=== PATIENT | male | born 1995 | race Caucasian/White ===

== ENCOUNTER 2020-07-09 16:18 | Emergency (ER) | payer OTHER, SELFPAY ==
--- NOTE | 2020-07-09 | ECG_ITS ---
Test Reason : TACHYCARDIA Blood Pressure : / mmHG Vent. Rate : 069 BPM Atrial Rate : 069 BPM P-R Int : 130 ms QRS Dur : 090 ms QT Int : 390 ms P-R-T Axes : 028 032 020 degrees QTc Int : 417 ms Normal sinus rhythm Normal ECG No previous ECGs available Referred By: Tiffanie Marcano Electronically Signed By:INDIA FLYNN
[2020-07-09 16:30] VITALS: BP 125/75; PULSE 90; RESP 20; TEMP 36.7; O2SAT 98; BMI 24.5
[2020-07-09 16:39] VITALS: PULSE 88
--- NOTE | 2020-07-09 16:47 | ED.ARRPALP ---
HPI - Arrhythmia/Palpitations General Chief Complaint: Weakness <LAY Vela - Last Filed: 07/09/20 18:24> Stated Complaint: SVT 200'S, NOW 80'S <LAY Vela - Last Filed: 07/09/20 18:24> Time Seen by Provider: 07/09/20 16:47 <LAY Vela - Last Filed: 07/09/20 18:24> Source: patient and EMS <LAY Vela - Last Filed: 07/09/20 18:24> Mode of arrival: EMS <LAY Vela - Last Filed: 07/09/20 18:24> Limitations: no limitations <LAY Veal - Last Filed: 07/09/20 18:24> History of Present Illness HPI narrative: 25 y/o male with history of chronic pain on chronic opiates from [facility], anxiety and panic attacks presents with acute onset of rapid heart rate and palpitations when he was playing with his dog today. Lasted >1 minutes and was associated with dizziness. On EMS arrival patient was reportedly in SVT with HR 200's. He was instructed to perform vagal manuever and he broke into NSR, HR 80's. He now fells back to baseline. No SOB or chest pain, dizziness resolved. Denies drug use aside from prescribed opiates and only socially drinks alcohol. <LAY Vela - Last Filed: 07/09/20 18:24> MD complaint: rapid heart beat and palpitations <LAY Vela - Last Filed: 07/09/20 18:24> Onset (ago): minute(s) (45) <LAY Vela - Last Filed: 07/09/20 18:24> Duration: now resolved <LAY Vela - Last Filed: 07/09/20 18:24> Severity: severe <LAY Vela - Last Filed: 07/09/20 18:24> Context: occurred during exertion <LAY Vela Last Filed: 07/09/20 18:24> Associated symptoms: near-syncope and anxiety <LAY Vela Last Filed: 07/09/20 18:24> Treatments prior to arrival: vagal maneuvers <LAY Vela - Last Filed: 07/09/20 18:24> Related Data Home Medications: Previous Rx's Medication Instructions Recorded metoprolol tartrate 12.5 mg PO Q12H PRN #20 tab NS 07/09/20 <LAY Vela - Last Filed: 07/09/20 18:24> Allergies/Adverse Reactions: Allergies Allergy/AdvReac Type Severity Reaction Status Date / Time ibuprofen [IBUPROFEN] Allergy Unknown UPSET Unverified 06/23/20 19:11 STOMACH, headache naproxen [NAPROXEN] Allergy Unknown DIZZINESS, Unverified 06/23/20 19:11 UPSET STOMACH, headache shellfish derived Allergy Unknown ANAPHYLAXIS Unverified 06/23/20 19:11 [SHELLFISH DERIVED] gabapentin AdvReac Unknown dizziness Verified 05/17/20 00:00 shell fish Allergy Unknown Uncoded 05/29/19 00:00 Shellfish Allergy Unknown anaphylaxis Uncoded 05/17/20 00:00 <LAY Vela - Last Filed: 07/09/20 18:24> Review of Systems Review of Systems: Constitutional: No Fever, No Chills ENT/Mouth: No sore throat, No Rhinorrhea, No Swallowing Difficulty Eyes: No Eye Pain, No Swelling, No Redness Cardiovascular: No Chest Pain or SOB, No Orthopnea or Edema, positive palpitations Respiratory: No Cough, No Sputum, No Wheezing or dyspnea Gastrointestinal: No Nausea, No Vomiting, No Diarrhea, No abdominal Pain, No Hematochezia, No Melena Genitourinary: No Dysuria, No Urinary Frequency, No Hematuria Musculoskeletal: No joint pain, No Myalgias Skin: No Skin Lesions, No rash Neuro: No Weakness, No Numbness, No Dizziness, No Headache Psych: positive Anxiety/Panic, No Depression Heme/Lymph: No Bruising, No Lymphadenopathy Endocrine: No Polyuria, No Polydipsia All other 10 point ROS are negative. <LAY Vela - Last Filed: 07/09/20 18:24> [facility] Past Medical History Medical History: Medical History Anxiety <LAY Vela Last Filed: 07/09/20 18:24> Social History Social History: Social History Alcohol intake: unknown Smoking Status: Unknown if ever smoked Use of substances other than those prescribed or required for medical reasons: No Advance Directives: No Advance Directives Information Provided: Yes <LAY Vela - Last Filed: 07/09/20 18:24> Physical Exam Vital Signs and I&O and Narrative: Vital Signs and I&O: Vital Signs Temp 98.0 F 07/09/20 18:18 Pulse 75 07/09/20 18:18 Resp 18 07/09/20 18:18 BP 122/77 07/09/20 18:18 Pulse Ox 100 07/09/20 18:18 Intake & Output 07/09/20 07/09/20 07/10/20 06:59 18:59 06:59 Weight 82.024 kg Body Mass Index 24.5 Appearance: Alert. Oriented X3. No acute distress. Eyes: Pupils equal, round and reactive to light. ENT: Pharynx normal. Neck: Normal inspection. Neck supple. CVS: Normal heart rate and rhythm. Pulses normal. Respiratory: No respiratory distress. Breath sounds normal. Abdomen: Soft and nontender. +BS x4 Skin: Skin warm and dry. Normal skin color. Normal skin turgor. No rashes. Extremities: No lower extremity edema. Neuro: Oriented X 3. No motor deficit. No sensory deficit. <LAY Vela - Last Filed: 07/09/20 18:24> Vital Signs and I&O: Vital Signs Temp 98.0 F 07/09/20 18:18 Pulse 75 07/09/20 18:18 Resp 18 07/09/20 18:18 BP 122/77 07/09/20 18:18 Pulse Ox 100 07/09/20 18:18 Intake & Output 07/09/20 07/09/20 07/10/20 06:59 18:59 06:59 Weight 82.024 kg Body Mass Index 24.5 <Rios Panchal DO - Last Filed: 07/10/20 01:17> Course Course Hospital Course: continues to be in NSR, will continue to monitor. basic labs ordered. <LAY Vela - Last Filed: 07/09/20 18:24> Reevaluation(s) Reevaluation #1: EKG and labs are unremarkable. remains in sinus. appears well. will refer to cardiology and give Rx for PRN low dose lopressor. stable for d/c. <LAY Vela - Last Filed: 07/09/20 18:24> MDM - Arrhythmia/Palpitations Differential Diagnosis Differential diagnosis: Likely palpitations, anxiety, supraventricular tachycardia, ventricular tachycardia and WPW <LAY Vela - Last Filed: 07/09/20 18:24> Medical Records Attestation: I reviewed the patient's medical records. <LAY Vela - Last Filed: 07/09/20 18:24> Lab Data Attestation: I reviewed the patient's lab results. <LAY Vela - Last Filed: 07/09/20 18:24> Result diagrams: : 07/09/20 17:21 07/09/20 17:21 <LAY Vela - Last Filed: 07/09/20 18:24> Labs: Lab Results 07/09/20 07/09/20 07/09/20 Range/Units 17:21 17:21 17:21 WBC 6.7 (4.8-10.8) X10*3/uL RBC 4.65 (4.60-5.80) X10*6/uL Hgb 12.2 L (14.0-18.0) g/dl Hct 37.9 L (42-52) % MCV 81.5 (80-98) fL MCH 26.2 L (27.0-33.0) pg MCHC 32.2 (31.0-36.0) g/dl RDW 12.6 (11.0-16.0) % Plt Count 283 (160-400) X10*3/uL MPV 9.6 (9.4-12.4) fL Immature Gran % (Auto) 0.9 H (0.0-0.4) % Neut % (Auto) 53.8 (45-73) % Lymph % (Auto) 28.3 (20-40) % [place] % (Auto) 8.9 (2-11) % Eos % (Auto) 7.7 H (0-4) % Baso % (Auto) 0.4 (0-2) % Neut # (Auto) 3.6 (2.0-8.3) X10*3/uL Lymph # (Auto) 1.9 (1.2-4.9) X10*3/uL [place] # (Auto) 0.6 (0.1-1.2) X10*3/uL Eos # (Auto) 0.5 H (0.0-0.4) X10*3/uL Baso # (Auto) 0.0 (0.0-0.2) X10*3/uL Abs Immat Gran (auto) 0.06 H (0.00-0.03) X10*3/uL Absolute Nucleated RBC 0.000 (0.0-0.012) X10*3/uL Nucleated RBC % (auto) 0.0 (0.0-0.2) /100WBC Sodium 141 (135-145) mmol/L Potassium 4.4 (3.3-5.1) mmol/l Chloride 107 (96-108) mmol/L Carbon Dioxide 26 (22-29) mmol/L Anion Gap 12 (12-20) BUN 13 (9-16) mg/dL Creatinine 0.94 (0.5-1.4) mg/dL Estim Creat Clear Calc 130.7 Estimated GFR > 60 Random Glucose 100 (60-115) mg/dL Calcium 9.2 (8.4-10.2) mg/dL Magnesium (1.6-2.6) mg/dL Total Bilirubin 0.3 (0.0-1.0) mg/dL Direct Bilirubin < 0.2 (0.0-0.5) mg/dL AST 19 (5-37) U/L ALT 26 (0-40) U/L Alkaline Phosphatase 66 (39-117) U/L Total Protein 6.7 (6.5-8.0) g/dL Albumin 4.4 (3.5-5.0) g/dL Urine Opiates Screen (Not Detect) Ur Barbiturates Screen (Not Detect) Ur Phencyclidine Scrn (Not Detect) Ur Amphetamines Screen (Not Detect) U Benzodiazepines Scrn (Not Detect) Urine Cocaine Screen (Not Detect) U Marijuana (THC) Screen (Not Detect) Ethyl Alcohol < 10 mg/dL 07/09/20 07/09/20 Range/Units 17:21 17:36 WBC (4.8-10.8) X10*3/uL RBC (4.60-5.80) X10*6/uL Hgb (14.0-18.0) g/dl Hct (42-52) % MCV (80-98) fL MCH (27.0-33.0) pg MCHC (31.0-36.0) g/dl RDW (11.0-16.0) % Plt Count (160-400) X10*3/uL MPV (9.4-12.4) fL Immature Gran % (Auto) (0.0-0.4) % Neut % (Auto) (45-73) % Lymph % (Auto) (20-40) % [place] % (Auto) (2-11) % Eos % (Auto) (0-4) % Baso % (Auto) (0-2) % Neut # (Auto) (2.0-8.3) X10*3/uL Lymph # (Auto) (1.2-4.9) X10*3/uL [place] # (Auto) (0.1-1.2) X10*3/uL Eos # (Auto) (0.0-0.4) X10*3/uL Baso # (Auto) (0.0-0.2) X10*3/uL Abs Immat Gran (auto) (0.00-0.03) X10*3/uL Absolute Nucleated RBC (0.0-0.012) X10*3/uL Nucleated RBC % (auto) (0.0-0.2) /100WBC Sodium (135-145) mmol/L Potassium (3.3-5.1) mmol/l Chloride (96-108) mmol/L Carbon Dioxide (22-29) mmol/L Anion Gap (12-20) BUN (9-16) mg/dL Creatinine (0.5-1.4) mg/dL Estim Creat Clear Calc Estimated GFR Random Glucose (60-115) mg/dL Calcium (8.4-10.2) mg/dL Magnesium 2.0 (1.6-2.6) mg/dL Total Bilirubin (0.0-1.0) mg/dL Direct Bilirubin (0.0-0.5) mg/dL AST (5-37) U/L ALT (0-40) U/L Alkaline Phosphatase (39-117) U/L Total Protein (6.5-8.0) g/dL Albumin (3.5-5.0) g/dL Urine Opiates Screen Not Detected (Not Detect) Ur Barbiturates Screen Not Detected (Not Detect) Ur Phencyclidine Scrn Not Detected (Not Detect) Ur Amphetamines Screen Not Detected (Not Detect) U Benzodiazepines Scrn Not Detected (Not Detect) Urine Cocaine Screen Not Detected (Not Detect) U Marijuana (THC) Screen Not Detected (Not Detect) Ethyl Alcohol mg/dL <LAY Vela - Last Filed: 07/09/20 18:24> Lab Results 07/09/20 07/09/20 07/09/20 Range/Units 17:21 17:21 17:21 WBC 6.7 (4.8-10.8) X10*3/uL RBC 4.65 (4.60-5.80) X10*6/uL Hgb 12.2 L (14.0-18.0) g/dl Hct 37.9 L (42-52) % MCV 81.5 (80-98) fL MCH 26.2 L (27.0-33.0) pg MCHC 32.2 (31.0-36.0) g/dl RDW 12.6 (11.0-16.0) % Plt Count 283 (160-400) X10*3/uL MPV 9.6 (9.4-12.4) fL Immature Gran % (Auto) 0.9 H (0.0-0.4) % Neut % (Auto) 53.8 (45-73) % Lymph % (Auto) 28.3 (20-40) % [place] % (Auto) 8.9 (2-11) % Eos % (Auto) 7.7 H (0-4) % Baso % (Auto) 0.4 (0-2) % Neut # (Auto) 3.6 (2.0-8.3) X10*3/uL Lymph # (Auto) 1.9 (1.2-4.9) X10*3/uL [place] # (Auto) 0.6 (0.1-1.2) X10*3/uL Eos # (Auto) 0.5 H (0.0-0.4) X10*3/uL Baso # (Auto) 0.0 (0.0-0.2) X10*3/uL Abs Immat Gran (auto) 0.06 H (0.00-0.03) X10*3/uL Absolute Nucleated RBC 0.000 (0.0-0.012) X10*3/uL Nucleated RBC % (auto) 0.0 (0.0-0.2) /100WBC Sodium 141 (135-145) mmol/L Potassium 4.4 (3.3-5.1) mmol/l Chloride 107 (96-108) mmol/L Carbon Dioxide 26 (22-29) mmol/L Anion Gap 12 (12-20) BUN 13 (9-16) mg/dL Creatinine 0.94 (0.5-1.4) mg/dL Estim Creat Clear Calc 130.7 Estimated GFR > 60 Random Glucose 100 (60-115) mg/dL Calcium 9.2 (8.4-10.2) mg/dL Magnesium (1.6-2.6) mg/dL Total Bilirubin 0.3 (0.0-1.0) mg/dL Direct Bilirubin < 0.2 (0.0-0.5) mg/dL AST 19 (5-37) U/L ALT 26 (0-40) U/L Alkaline Phosphatase 66 (39-117) U/L Total Protein 6.7 (6.5-8.0) g/dL Albumin 4.4 (3.5-5.0) g/dL Urine Opiates Screen (Not Detect) Ur Barbiturates Screen (Not Detect) Ur Phencyclidine Scrn (Not Detect) Ur Amphetamines Screen (Not Detect) U Benzodiazepines Scrn (Not Detect) Urine Cocaine Screen (Not Detect) U Marijuana (THC) Screen (Not Detect) Ethyl Alcohol < 10 mg/dL 07/09/20 07/09/20 Range/Units 17:21 17:36 WBC (4.8-10.8) X10*3/uL RBC (4.60-5.80) X10*6/uL Hgb (14.0-18.0) g/dl Hct (42-52) % MCV (80-98) fL MCH (27.0-33.0) pg MCHC (31.0-36.0) g/dl RDW (11.0-16.0) % Plt Count (160-400) X10*3/uL MPV (9.4-12.4) fL Immature Gran % (Auto) (0.0-0.4) % Neut % (Auto) (45-73) % Lymph % (Auto) (20-40) % [place] % (Auto) (2-11) % Eos % (Auto) (0-4) % Baso % (Auto) (0-2) % Neut # (Auto) (2.0-8.3) X10*3/uL Lymph # (Auto) (1.2-4.9) X10*3/uL [place] # (Auto) (0.1-1.2) X10*3/uL Eos # (Auto) (0.0-0.4) X10*3/uL Baso # (Auto) (0.0-0.2) X10*3/uL Abs Immat Gran (auto) (0.00-0.03) X10*3/uL Absolute Nucleated RBC (0.0-0.012) X10*3/uL Nucleated RBC % (auto) (0.0-0.2) /100WBC Sodium (135-145) mmol/L Potassium (3.3-5.1) mmol/l Chloride (96-108) mmol/L Carbon Dioxide (22-29) mmol/L Anion Gap (12-20) BUN (9-16) mg/dL Creatinine (0.5-1.4) mg/dL Estim Creat Clear Calc Estimated GFR Random Glucose (60-115) mg/dL Calcium (8.4-10.2) mg/dL Magnesium 2.0 (1.6-2.6) mg/dL Total Bilirubin (0.0-1.0) mg/dL Direct Bilirubin (0.0-0.5) mg/dL AST (5-37) U/L ALT (0-40) U/L Alkaline Phosphatase (39-117) U/L Total Protein (6.5-8.0) g/dL Albumin (3.5-5.0) g/dL Urine Opiates Screen Not Detected (Not Detect) Ur Barbiturates Screen Not Detected (Not Detect) Ur Phencyclidine Scrn Not Detected (Not Detect) Ur Amphetamines Screen Not Detected (Not Detect) U Benzodiazepines Scrn Not Detected (Not Detect) Urine Cocaine Screen Not Detected (Not Detect) U Marijuana (THC) Screen Not Detected (Not Detect) Ethyl Alcohol mg/dL <Rios Panchal DO - Last Filed: 07/10/20 01:17> ECG Data ECG interpretation date: 07/09/20 <LAY Vela - Last Filed: 07/09/20 18:24> Interpretation: normal sinus rhythm, NR 69 bpm, normal OK interval. <LAY Vela Last Filed: 07/09/20 18:24> Discharge Plan Discharge Clinical Impression: Supraventricular tachycardia <LAY Vela Last Filed: 07/09/20 18:24> Patient Disposition: Home, Self-Care <LAY Vela - Last Filed: 07/09/20 18:24> Instructions: Supraventricular Tachycardia (ED) <LAY Vela Last Filed: 07/09/20 18:24> Additional Instructions: Avoid stimulants. Do NOT do cocaine. Limit your alcohol intake. Stay hydrated. If you experience a fast heart rate again, try the bearing down maneuver that worked for you earlier with the EMT's. If this doesn't improve your symptoms, take 1 of the medications newly prescribed. Call 911 or come to the ER if symptoms persist, or if you develop chest pain or shortness of breath. Follow up with Cardiology for further workup. <LAY Vela - Last Filed: 07/09/20 18:24> Prescriptions: New metoprolol tartrate 25 mg tablet 12.5 mg PO Q12H PRN (Reason: palpitations ) Qty: 20 RF: 0 <LAY Vela Last Filed: 07/09/20 18:24> Interventions: ED Discharge Assessment Last Done: 07/09/20 18:35 <LAY Vela Last Filed: 07/09/20 18:24> Discharge Date/Time: 07/09/20 18:35 <LAY Vela Last Filed: 07/09/20 18:24>
[2020-07-09 17:29] LABS: MANUAL DIFF FLAG NO
[2020-07-09 17:43] LABS: Basophils Percent Auto 0.4 % (0-2); Eosinophils Absolute Auto 0.5 X10*3/uL (0.0-0.4); Eosinophils Percent Auto 7.7 % (0-4); Hematocrit 37.9 % (42-52); Hemoglobin 12.2 g/dl (14.0-18.0); Imm Gran Abs Auto 0.06 X10*3/uL (0.00-0.03); Imm Gran Pct Auto 0.9 % (0.0-0.4); Lymphocytes Absolute Auto 1.9 X10*3/uL (1.2-4.9); Lymphocytes Percent Auto 28.3 % (20-40); Mean Corpuscular HGB Conc 32.2 g/dl (31.0-36.0); Mean Corpuscular Hemoglobin 26.2 pg (27.0-33.0); Mean Corpuscular Volume 81.5 fL (80-98); Mean Platelet Volume 9.6 fL (9.4-12.4); Monocytes Absolute Auto 0.6 X10*3/uL (0.1-1.2); Monocytes Percent Auto 8.9 % (2-11); Neutrophils Absolute Auto 3.6 X10*3/uL (2.0-8.3); Neutrophils Percent Auto 53.8 % (45-73); Platelet Count 283 X10*3/uL (160-400); Red Blood Count 4.65 X10*6/uL (4.60-5.80); Red Cell Distribution Width 12.6 % (11.0-16.0); White Blood Count 6.7 X10*3/uL (4.8-10.8)
[2020-07-09 17:54] LABS: Alanine Aminotransferase 26 U/L (0-40); Albumin Level 4.4 g/dL (3.5-5.0); Alkaline Phosphatase 66 U/L (39-117); Anion Gap 12 (12-20); Aspartate Amino Transferase 19 U/L (5-37); Bilirubin Direct < 0.2 mg/dL (0.0-0.5); Bilirubin Total 0.3 mg/dL (0.0-1.0); Blood Urea Nitrogen 13 mg/dL (9-16); Calcium 9.2 mg/dL (8.4-10.2); Carbon Dioxide 26 mmol/L (22-29); Chloride 107 mmol/L (96-108); Creatinine Clr Calc Pharmacy 130.7; Estimated Glomerular Filt Rate > 60; Ethanol < 10 mg/dL; Glucose Random 100 mg/dL (60-115); Potassium 4.4 mmol/l (3.3-5.1); Sodium 141 mmol/L (135-145); Total Protein 6.7 g/dL (6.5-8.0)
[2020-07-09 18:18] VITALS: BP 122/77; PULSE 75; RESP 18; TEMP 36.7; O2SAT 100
[2020-07-09 18:31] LABS: Amphetamine Screen Urine Not Detected (Not Detect); Barbiturates, Urine Not Detected (Not Detect); Benzodiazepines Screen Urine Not Detected (Not Detect); Cannabinoid Screen Urine Not Detected (Not Detect); Cocaine Screen Urine Not Detected (Not Detect); Opiate Screen Urine Not Detected (Not Detect); Phencyclidine Screen Urine Not Detected (Not Detect)
== END 2020-07-09 18:35 | disposition home or self-care (01) ==
PROVIDERS: Physician Assistant; Emergency Provider Emergency Medicine
DX: I47.1 Supraventricular tachycardia (principal); F41.9 Anxiety disorder, unspecified; Z79.891 Long term (current) use of opiate analgesic
CPT/HCPCS: 36415; 80048; 80076; 80307; 80320; 83735; 85025; 93005; 93010; 99284; 99285

== ENCOUNTER → 2020-08-08 14:46 | Outpatient (BNVA) | payer OTHER, SELFPAY | PROVIDERS: PCP Nurse Practitioner Family; Visit Provider Internal Medicine | DX: I47.1 Supraventricular tachycardia (principal); Z79.899 Other long term (current) drug therapy | CPT/HCPCS: 99202 ==

== ENCOUNTER → 2020-08-23 11:52 | Outpatient (REF) | payer OTHER, SELFPAY ==
--- NOTE | 2020-08-23 11:59 | ECG_ITS ---
Hook-up date: 2020-08-23 12:08:00 Duration: 47:59:00 Test Indications: SVT Medications: [id number] QRS complexes 5 Ventricular ectopics which represent <1 % of total QRS comp. * Supraventricular ectopics which represent % of total QRS comp. * Paced QRS complexs which represent % of total QRS comp. VENTRICULAR ECTOPY 5 Isolated 0 Bigeminal Cycles 0 Couplets 0 Runs 0 Beats in Runs * Beats LONGEST at * BPM at :: -- * Beats FASTEST at * BPM at :: -- SUPRAVENTRICULAR ECTOPY * Isolated * Couplets * Runs * Beats in Runs * Beats LONGEST at * BPM at :: -- * Beats FASTEST at * BPM at :: -- HEART RATES 56 MIN at 07:34:45 2020-08-24 89 AVG 153 MAX at 22:27:56 2020-08-23 LONGEST RR 1.2080 secs at 04:57:53 2020-08-24 S-T LEVELS Channel 1 - 128 mm at 12:08:00 2020-08-23 - 128 mm at 12:08:00 2020-08-23 Channel 2 - 128 mm at 12:08:00 2020-08-23 - 128 mm at 12:08:00 2020-08-23 Channel 3 - 128 mm at 03:12:71 -- - 128 mm at 03:12:71 Basic rhythm Normal sinus rhythm No long pause or profound bradycardia No dangerous dysrhythm periods Patient did not report any symptoms in the diary Referred By: Iron Chavez Overread By: IMELDA WILKINS MD
== END ==
LOC: HO.CARD 11:52
PROVIDERS: Visit Provider Internal Medicine
DX: I47.1 Supraventricular tachycardia (principal)
CPT/HCPCS: 93225; 93226

== ENCOUNTER → 2020-09-15 13:51 | Outpatient (BNVA) | payer OTHER, SELFPAY | PROVIDERS: PCP Physician Assistant; Referring Provider Physician Assistant; Visit Provider Internal Medicine | DX: Z76.89 Persons encountering health services in other specified circumstances (principal) ==

== ENCOUNTER 2020-10-20 20:45 | Emergency (ER) | payer OTHER, SELFPAY ==
[2020-10-20 20:48] VITALS: BP 130/70; PULSE 87; RESP 18; TEMP 36.5; O2SAT 100; BMI 23.7
--- NOTE | 2020-10-20 22:04 | PC.NURSE ---
THIS RN WITNESSED PT AMBULATE ABOUT ED WAITING ROOM TALKING ON CELL PHONE, BREATHING WITH EASE, NO DISTRESS. PT THEN AMBULATED OUT OF ED WITH EVEN STEADY GAIT AND GOT INTO A VEHICLE AND LEFT THE PROPERTY.
== END 2020-10-20 22:05 | disposition left against medical advice (07) ==
PROVIDERS: Emergency Provider Emergency Medicine; PCP Physician Assistant
DX: J45.909 Unspecified asthma, uncomplicated (principal)
CPT/HCPCS: 99281; 99282

== ENCOUNTER 2020-11-07 13:16 | Emergency (ER) | payer OTHER, SELFPAY ==
[2020-11-07 18:18] VITALS: BP 132/78; PULSE 134; RESP 16; TEMP 36.9; O2SAT 96; BMI 24.4
[2020-11-07 18:33] LABS: MANUAL DIFF FLAG NO
[2020-11-07 18:34] LABS: Basophils Percent Auto 0.3 % (0-2); Eosinophils Percent Auto 0.4 % (0-4); Hematocrit 42.3 % (42-52); Hemoglobin 13.5 g/dl (14.0-18.0); Imm Gran Abs Auto 0.02 X10*3/uL (0.00-0.03); Imm Gran Pct Auto 0.2 % (0.0-0.4); Lymphocytes Absolute Auto 1.2 X10*3/uL (1.2-4.9); Mean Corpuscular HGB Conc 31.9 g/dl (31.0-36.0); Mean Corpuscular Volume 81.3 fL (80-98); Mean Platelet Volume 9.5 fL (9.4-12.4); Monocytes Absolute Auto 0.6 X10*3/uL (0.1-1.2); Neutrophils Absolute Auto 7.8 X10*3/uL (2.0-8.3); Neutrophils Percent Auto 81.1 % (45-73); Platelet Count 306 X10*3/uL (160-400); Red Cell Distribution Width 11.9 % (11.0-16.0); White Blood Count 9.6 X10*3/uL (4.8-10.8)
--- NOTE | 2020-11-07 18:46 | XR_ITS ---
EXAMINATION: XR ABDOMEN KUB CLINICAL INDICATION: Constipation and abdominal pain COMPARISON: KUB 03/11/2020 TECHNIQUE: AP view of the abdomen. FINDINGS: A large stool burden is present throughout the colon especially in the rectosigmoid. A large stool burden and was present on 03/11/2020 as well, but this appears increased. There is no evidence of bowel obstruction. Some air is seen in nondilated small bowel. No unusual calcifications are seen. A small bone island is noted in the intertrochanteric region in the left femur. The visualized lung bases are clear. XR/XR KUB IMPRESSION: Large stool burden in the colon.
[2020-11-07 19:00] LABS: Anion Gap 16 (12-20); Blood Urea Nitrogen 13 mg/dL (9-16); Calcium 9.6 mg/dL (8.4-10.2); Carbon Dioxide 23 mmol/L (22-29); Chloride 104 mmol/L (96-108); Creatinine Clr Calc Pharmacy 141.2; Estimated Glomerular Filt Rate > 60; Glucose Random 103 mg/dL (60-115); Potassium 4.1 mmol/L (3.3-5.1); Sodium 139 mmol/L (135-145)
[2020-11-07 20:00] VITALS: RESP 20; O2SAT 100
--- NOTE | 2020-11-07 20:25 | ED.GENADULT ---
HPI - General Adult General Chief complaint: Abdominal Pain Stated complaint: constipated, pain with bowel movement Time Seen by Provider: 11/07/20 18:46 Source: patient Mode of arrival: EMS Limitations: no limitations History of Present Illness HPI narrative: 25-year-old male who presents emergency department for evaluation of constipation and near syncope. The patient states he has not moved his bowels in 3-4 weeks. He states that he was on the toilet any had an uncontrolled urge to move his bowels, he states that he was straining and could not stop straining, he then felt lightheaded and dizzy as if he was going to pass out. He states that he was concerned about his dizziness we called an ambulance was transported to the emergency department. Patient states he has had issues with constipation in the past but has never been this constipated. Patient does have chronic lower back pain and he does take oxycodone daily for his pain. He states that he is having abdominal pain. He points to his lower abdomen when asked to localize the pain. He describes the pain as a constant, pressure sensation that he feels in his rectal area as well. He feels bloated. He denied fever, chills, nausea or vomiting. He has not had any abdominal surgeries in the past. Related Data Home Medications Medication Instructions Recorded Confirmed levalbuterol tartrate 45 2 puff INHALATION Q4-6H PRN 08/02/20 10/31/20 mcg/actuation aerosol inhaler zolpidem 10 mg tablet 10 mg PO BEDTIME PRN 08/02/20 10/31/20 clonazepam 1 mg tablet 1 mg PO DAILY PRN 08/08/20 10/31/20 dextroamphetamine-amphetamine 20 20 mg PO BID PRN 08/08/20 10/31/20 mg tablet clonazepam 0.5 mg tablet 1.5 mg PO Q OTHER DAY PRN 09/07/20 10/31/20 dextroamphetamine-amphetamine ER 1 cap PO QAM 09/07/20 10/31/20 30 mg 24hr capsule,extend release acetaminophen 300 mg-codeine 30 mg 1 tab PO BID PRN 10/14/20 10/31/20 tablet Previous Rx's Medication Instructions Recorded lidocaine 4 % topical patch 1 patch TOPICAL DAILY PRN 30 Days 07/13/20 #30 ea diclofenac sodium 1 % topical gel 2 g TOPICAL TID #100 g 08/23/20 tramadol 50 mg tablet 50 mg PO BID PRN 15 Days #30 tab 09/07/20 metoprolol tartrate 25 mg tablet 12.5 mg PO Q12H PRN #30 tab NS 09/15/20 cyclobenzaprine 10 mg tablet 10 mg PO BEDTIME PRN #30 tab 10/05/20 mczutez-uwqirfsojn-XEP-caffeine 30 1 cap PO QID PRN 7 Days #28 cap 10/06/20 mg-50 mg-325 mg-40 mg capsule fluticasone 55 mcg-salmeterol 14 1 inh PO BID 30 Days #1 ea 10/31/20 mcg/actuation breath activated powder albuterol sulfate 90 mcg/actuation 2 puff INHALATION Q4-6H PRN 30 11/03/20 aerosol inhaler Days #8.5 g prednisone 10 mg tablet 10 mg PO DAILY 6 Days #12 tab 11/03/20 butalbital 50 mg-acetaminophen 300 1 cap PO BID PRN 7 Days #14 cap 11/04/20 mg-caffeine 40 mg-codeine 30 mg cap Allergies Allergy/AdvReac Type Severity Reaction Status Date / Time ibuprofen [IBUPROFEN] Allergy Unknown UPSET Verified 10/31/20 17:10 STOMACH, headache naproxen [NAPROXEN] Allergy Unknown DIZZINESS, Verified 10/31/20 17:10 UPSET STOMACH, headache shellfish derived Allergy Unknown ANAPHYLAXIS Verified 10/31/20 17:10 [SHELLFISH DERIVED] gabapentin AdvReac Unknown dizziness Verified 10/31/20 17:10 Review of Systems Review of Systems: Yes all other systems are reviewed and are negative Neurologic: Reports Abnormal speech present [facility] Past Medical History [facility] Narrative: Patient has a history of lumbar disc disease and chronic lower back pain, ADHD, asthma, depression, anxiety, migraines, SVT. He denies tobacco, alcohol and drug use. Medical History Anxiety Arthritis SVT (supraventricular tachycardia) Surgical History No pertinent past surgical history Family History Family History Father Cancer Mother No problems noted. Social History Social History Alcohol intake: never Smoking Status: Never smoker Smoked in Last 30 Days: No Use of substances other than those prescribed or required for medical reasons: Unknown Advance Directives: No Advance Directives Information Provided: Yes Physical Exam Vital Signs: Vital Signs: Last Vital Signs Temp 98.4 F 11/07/20 18:18 Pulse 134 H 11/07/20 18:18 Resp 20 11/07/20 20:00 BP 132/78 11/07/20 18:18 Pulse Ox 100 11/07/20 20:00 Body Mass Index 24.4 Const: General: cooperative and healthy appearing Orientation/consciousness: oriented to person and oriented to place Limitations: no limitations HENMT: Head: Yes normal to inspection, Yes normocephalic and Yes atraumatic Ears: external ears normal General nose exam: Normal external nose present Face and sinus: Yes normal facial exam Mouth: Normal oral and palatal mucosa present Throat: Yes posterior oropharynx normal Eyes: Periorbital: periorbital findings normal Eyelids: Yes eyelids normal Conjunctivae: conjunctivae normal Sclerae: sclerae normal Corneas: corneas normal Pupils: Equal, round and reactive pupils present Direct Ophthalmoscopy: normal light reflex Neck: Neck: Yes full ROM, Yes no lymphadenopathy, Yes no meningeal signs, Yes trachea midline and Yes supple Chest: Chest palpation & inspection: normal inspection of the chest and normal palpation of entire chest wall Resp: Effort & Inspection: normal respiratory effort and able to speak in complete sentences Auscultation: clear to auscultation bilaterally Cardio: Rate: regular rate Rhythm: regular rhythm Heart sounds: S1 normal heart sound present, S2 normal heart sound present and no murmurs GI: Inspection: Yes normal to inspection Palpation (GI): Soft to palpation, Tenderness to palpation present (GI) in the LLQ, in the RLQ and suprapubicly, no guarding, not rigid and No hepatosplenomegaly present Rectal Exam - Male: Yes visual inspection normal, Yes Abnormal stool present (Large amount of hard stool in balls) and No External hemorrhoid(s) present : General: Yes no CVA tenderness Back/Spine/Pelvis: Back: no CVA tenderness Cervical Spine: normal cervical lordosis Thoracic/Lumbar Spine: thoracic and lumbar spine normal to inspection Skin: Lesions: no lesions Rashes: no rashes Wounds: no wounds Neuro: General: oriented to person, oriented to place and no meningeal signs Cranial nerves: Yes CN's II-XII intact bilaterally and Yes Equal, round and reactive pupils present Cognition (Neuro): normal cognition Speech: Abnormal speech present Motor exam (neuro): 5/5 motor strength present throughout Extrem: General: Yes normal to inspection and Yes full ROM Psych: Appearance: well kempt Mental Status: mental status grossly normal Speech and movement: Normal speech and movement present Affect: normal affect Attitude: cooperative Thought process: Normal thought process present Thought content: Normal thought content present Course Course Course Narrative: 25-year-old male with a history of chronic back pain who takes oxycodone daily, who presents to emergency department for evaluation of constipation x4 weeks, near syncope while trying to move his bowels today. Physical examination did reveal lower abdominal tenderness rectal exam revealed multiple hard , balls of stool in his rectum which were removed by me manually. The patient was ordered to get a mineral oil enema after disimpaction. 2127: The patient was given an enema and he had a small bowel movement but then he felt that he was impacted again and requested that I disimpacted again. I was able to remove 2 more large hard stools, the patient at this point wants to go home and does not want to wait in the emergency department any longer. Patient was advised to continue taking his medication as prescribed by his doctor (lactulose and senna). He was advised to purchase a bottle of magnesium citrate and to start this tomorrow morning. Procedures Rectal Disimpaction Time out performed rectal disimpaction: No Indication: fecal impaction (Large amounts of hard stool in the patient's rectum) Procedural Sedation: No Sedation/Analgesia: none Technique: manual disimpaction with gloved finger Result: significant stool output Patient Tolerated Procedure: well Complications: none Medical Decision Making Lab Data Result diagrams: 11/07/20 18:28 11/07/20 18:28 Labs: Lab Results 11/07/20 11/07/20 Range/Units 18:28 18:28 WBC 9.6 (4.8-10.8) X10*3/uL RBC 5.20 (4.60-5.80) X10*6/uL Hgb 13.5 L (14.0-18.0) g/dl Hct 42.3 (42-52) % MCV 81.3 (80-98) fL MCH 26.0 L (27.0-33.0) pg MCHC 31.9 (31.0-36.0) g/dl RDW 11.9 (11.0-16.0) % Plt Count 306 (160-400) X10*3/uL MPV 9.5 (9.4-12.4) fL Immature Gran % (Auto) 0.2 (0.0-0.4) % Neut % (Auto) 81.1 H (45-73) % Lymph % (Auto) 12.0 L (20-40) % Ward % (Auto) 6.0 (2-11) % Eos % (Auto) 0.4 (0-4) % Baso % (Auto) 0.3 (0-2) % Lymph # (Auto) 1.2 (1.2-4.9) X10*3/uL Ward # (Auto) 0.6 (0.1-1.2) X10*3/uL Eos # (Auto) 0.0 (0.0-0.4) X10*3/uL Baso # (Auto) 0.0 (0.0-0.2) X10*3/uL Abs Immat Gran (auto) 0.02 (0.00-0.03) X10*3/uL Absolute Neuts (auto) 7.8 (2.0-8.3) X10*3/uL Absolute Nucleated RBC 0.000 (0.0-0.012) X10*3/uL Nucleated RBC % (auto) 0.0 (0.0-0.2) /100WBC Sodium 139 (135-145) mmol/L Potassium 4.1 (3.3-5.1) mmol/L Chloride 104 (96-108) mmol/L Carbon Dioxide 23 (22-29) mmol/L Anion Gap 16 (12-20) BUN 13 (9-16) mg/dL Creatinine 0.87 (0.5-1.4) mg/dL Estim Creat Clear Calc 141.2 Estimated GFR > 60 Random Glucose 103 (60-115) mg/dL Calcium 9.6 (8.4-10.2) mg/dL Discharge Plan Discharge Prescriptions: No Action lidocaine 4 % adhesive patch,medicated 1 patch topical DAILY PRN (Reason: pain) 30 Days Qty: 30 RF: 8 diclofenac sodium 1 % gel 2 g topical TID Qty: 100 RF: 1 cyclobenzaprine 10 mg tablet 10 mg PO BEDTIME PRN (Reason: for muscle spasm) Qty: 30 RF: 1 [id number]-divcckrtcw-YFT-caff [Fiorinal-Codeine #3] [id number] mg capsule 1 cap PO QID PRN (Reason: headache) 7 Days Qty: 28 RF: 1 acetaminophen-codeine 300-30 mg tablet 1 tab PO BID PRNRF: 0 albuterol sulfate [ProAir HFA] 90 mcg/actuation HFA aerosol inhaler 2 puff inhalation Q4-6H PRN (Reason: shortness of breath or wheezing) 30 Days Qty: 8.5 RF: 0 prednisone 10 mg tablet 10 mg PO DAILY 6 Days Qty: 12 RF: 0 jprlzujxbv-gkezkxibif-hnb-cod [Fioricet with Codeine] [id number] mg capsule 1 cap PO BID PRN (Reason: pain) 7 Days Qty: 14 RF: 0 levalbuterol tartrate [Xopenex HFA] 45 mcg/actuation HFA aerosol inhaler 2 puff inhalation Q4-6H PRNRF: 0 zolpidem 10 mg tablet 10 mg PO BEDTIME PRNRF: 0 clonazepam [Klonopin] 1 mg tablet 1 mg PO DAILY PRNRF: 0 dextroamphetamine-amphetamine [Adderall] 20 mg tablet 20 mg PO BID PRNRF: 0 dextroamphetamine-amphetamine 30 mg capsule,extended release 24hr 1 cap PO QAM RF: 0 clonazepam 0.5 mg tablet 1.5 mg PO Q OTHER DAY PRNRF: 0 tramadol 50 mg tablet 50 mg PO BID PRN (Reason: pain) 15 Days Qty: 30 RF: 2 fluticasone propion-salmeterol 55-14 mcg/actuation aerosol powdr breath activated 1 inh PO BID 30 Days Qty: 1 RF: 1 metoprolol tartrate 25 mg tablet 12.5 mg PO Q12H PRN (Reason: palpitations ) Qty: 30 RF: 5
[2020-11-07] MEDS: Mineral OiL enema 133 ML ENEMA PR (20:46)
[2020-11-07] MEDS: LORazepam 1 MG TABLET PO (21:06)
== END 2020-11-07 21:55 | disposition home or self-care (01) ==
PROVIDERS: Emergency Provider Emergency Medicine Emergency Medical Services
DX: K56.41 Fecal impaction (principal); G89.29 Other chronic pain; M54.5 Low back pain; Z79.891 Long term (current) use of opiate analgesic
CPT/HCPCS: 36415; 74018; 80048; 85025; 99284

== ENCOUNTER 2020-11-11 21:05 | Emergency (ER) | payer OTHER, SELFPAY ==
[2020-11-11 22:24] VITALS: BP 134/67; PULSE 93; RESP 16; TEMP 36.7; O2SAT 99; BMI 24.4
== END 2020-11-12 01:20 | disposition left against medical advice (07) ==
PROVIDERS: Emergency Provider Emergency Medicine
DX: J45.909 Unspecified asthma, uncomplicated (principal)
CPT/HCPCS: 99281; 99282

== ENCOUNTER → 2020-12-05 13:48 | Outpatient (BNVA) | payer OTHER, SELFPAY | PROVIDERS: PCP Physician Assistant; Visit Provider Anesthesiology | DX: M51.37 Other intervertebral disc degeneration, lumbosacral region (principal); G89.4 Chronic pain syndrome | CPT/HCPCS: 99202 ==

== ENCOUNTER → 2021-01-16 15:09 | Outpatient (BNVA) | payer OTHER, SELFPAY | PROVIDERS: PCP Physician Assistant; Visit Provider Anesthesiology ==

== ENCOUNTER 2021-03-07 10:10 | Outpatient (REF) | payer OTHER, SELFPAY ==
--- NOTE | ~2021-03-07 | XR_ITS ---
EXAMINATION: BILATERAL HAND CLINICAL INFORMATION: Pain in bilateral hand. COMPARISON: None TECHNIQUE: 3 views each hand. FINDINGS: Left hand: There is no visible acute fracture, dislocation or subluxation. The joint spaces are normal. The soft tissues are normal. Right hand: There is bony erosive changes. The joint spaces are normal. The soft tissues are normal. XR/XR hand LT 2V IMPRESSION: Unremarkable bilateral hand exam.
--- NOTE | ~2021-03-07 | XR_ITS ---
EXAMINATION: BILATERAL HAND CLINICAL INFORMATION: Pain in bilateral hand. COMPARISON: None TECHNIQUE: 3 views each hand. FINDINGS: Left hand: There is no visible acute fracture, dislocation or subluxation. The joint spaces are normal. The soft tissues are normal. Right hand: There is bony erosive changes. The joint spaces are normal. The soft tissues are normal. XR/XR hand RT 2V IMPRESSION: Unremarkable bilateral hand exam.
== END 2021-03-07 10:11 | disposition home or self-care (01) ==
LOC: HO.XRAY 10:10
PROVIDERS: PCP Physician Assistant; Visit Provider Physician Assistant
DX: M79.641 Pain in right hand (principal); M79.642 Pain in left hand
CPT/HCPCS: 73120

== ENCOUNTER 2021-03-28 06:28 | Outpatient (REF) | payer OTHER, SELFPAY ==
--- NOTE | ~2021-03-28 | FL_ITS ---
EXAMINATION: XR FLUOROSCOPY WITH IMAGES CLINICAL INFORMATION: Other spondylosis with myelopathy COMPARISON: None. TECHNIQUE: Fluoroscopy performed by Michelle Stevenson NP. Fluoroscopy time: 0.4 minutes DAP: 3.03 Gycm2 Images: 6 FINDINGS: There are bilateral needles placed lateral to the S1, L5 and L4 pedicles for pain management. Visualized bones are grossly unremarkable. FL/FL guidance in treatment room IMPRESSION: Fluoroscopy was provided to physician for pain management
== END 2021-03-28 06:29 | disposition home or self-care (01) ==
LOC: HO.RADIR 06:28
PROVIDERS: Visit Provider Anesthesiology
DX: M47.16 Other spondylosis with myelopathy, lumbar region (principal); M51.37 Other intervertebral disc degeneration, lumbosacral region; G89.4 Chronic pain syndrome
CPT/HCPCS: 64493; 64494; Q9967

== ENCOUNTER → 2021-04-03 15:35 | Outpatient (BNVA) | payer OTHER, SELFPAY | PROVIDERS: PCP Physician Assistant; Visit Provider Anesthesiology | DX: M51.37 Other intervertebral disc degeneration, lumbosacral region (principal); G89.4 Chronic pain syndrome; M47.817 Spondylosis without myelopathy or radiculopathy, lumbosacral region; M47.16 Other spondylosis with myelopathy, lumbar region | CPT/HCPCS: 99212 ==

== ENCOUNTER 2021-04-05 11:17 | Outpatient (REF) | payer OTHER, SELFPAY | END 2021-04-05 11:18 | disposition home or self-care (01) | LOC: HO.LAB 11:17 | PROVIDERS: PCP Physician Assistant; Visit Provider Nurse Practitioner Family | DX: Z13.89 Encounter for screening for other disorder (principal) ==

== ENCOUNTER → 2021-04-20 15:54 | Outpatient (BNVA) | payer OTHER, SELFPAY | PROVIDERS: PCP Physician Assistant; Visit Provider Anesthesiology | DX: M51.37 Other intervertebral disc degeneration, lumbosacral region (principal); M47.16 Other spondylosis with myelopathy, lumbar region; G89.4 Chronic pain syndrome | CPT/HCPCS: 99212 ==

== ENCOUNTER → 2021-05-17 16:25 | Outpatient (BNVA) | payer OTHER, SELFPAY | PROVIDERS: PCP Physician Assistant; Visit Provider Nurse Practitioner Family | DX: M51.37 Other intervertebral disc degeneration, lumbosacral region (principal); M47.16 Other spondylosis with myelopathy, lumbar region; G89.4 Chronic pain syndrome | CPT/HCPCS: 99212 ==

== ENCOUNTER → 2021-06-14 15:42 | Outpatient (BNVA) | payer OTHER, SELFPAY | PROVIDERS: PCP Physician Assistant; Visit Provider Anesthesiology | DX: Z51.81 Encounter for therapeutic drug level monitoring (principal); M51.37 Other intervertebral disc degeneration, lumbosacral region; M47.16 Other spondylosis with myelopathy, lumbar region; G89.4 Chronic pain syndrome | CPT/HCPCS: 99212 ==

== ENCOUNTER → 2021-07-12 14:08 | Outpatient (BNVA) | payer OTHER, SELFPAY | PROVIDERS: PCP Physician Assistant; Visit Provider Anesthesiology | DX: Z51.81 Encounter for therapeutic drug level monitoring (principal); M51.37 Other intervertebral disc degeneration, lumbosacral region; M47.16 Other spondylosis with myelopathy, lumbar region; G89.4 Chronic pain syndrome | CPT/HCPCS: 99212 ==

== ENCOUNTER → 2021-08-14 12:22 | Outpatient (BNVA) | payer OTHER, SELFPAY | PROVIDERS: PCP Physician Assistant; Visit Provider Anesthesiology ==

== ENCOUNTER 2021-08-29 06:38 | Outpatient (REF) | payer OTHER, SELFPAY | END 2021-08-29 06:39 | disposition home or self-care (01) | LOC: HO.RADIR 06:38 | PROVIDERS: Visit Provider Anesthesiology | DX: Z13.89 Encounter for screening for other disorder (principal) ==

== ENCOUNTER → 2021-09-13 09:08 | Outpatient (BNVA) | payer OTHER, SELFPAY | PROVIDERS: PCP Physician Assistant; Visit Provider Anesthesiology | DX: Z51.81 Encounter for therapeutic drug level monitoring (principal); M51.37 Other intervertebral disc degeneration, lumbosacral region; M47.16 Other spondylosis with myelopathy, lumbar region; G89.4 Chronic pain syndrome | CPT/HCPCS: 99212 ==

== ENCOUNTER → 2021-10-09 15:16 | Outpatient (BNVA) | payer OTHER, SELFPAY | PROVIDERS: PCP Physician Assistant; Visit Provider Anesthesiology | DX: Z51.81 Encounter for therapeutic drug level monitoring (principal); F11.20 Opioid dependence, uncomplicated; M51.37 Other intervertebral disc degeneration, lumbosacral region; M47.16 Other spondylosis with myelopathy, lumbar region; G89.4 Chronic pain syndrome | CPT/HCPCS: 99212 ==

== ENCOUNTER → 2021-11-06 10:57 | Outpatient (BNVA) | payer OTHER, SELFPAY | PROVIDERS: PCP Physician Assistant; Visit Provider Anesthesiology | DX: Z79.891 Long term (current) use of opiate analgesic (principal) | CPT/HCPCS: 99211 ==

== ENCOUNTER 2021-12-01 16:53 | Emergency (ER) | payer OTHER, SELFPAY ==
--- NOTE | ~2021-12-01 | CT_ITS ---
CT head/brain wo con CLINICAL INFORMATION: Reason for Exam headache COMPARISON: No prior CT scan available for comparison. TECHNIQUE: Department standard protocol. This CT examination was performed using dose optimization techniques as appropriate, variously including the following: *Automated exposure control *Adjustment of mA and/or kV according to patient size (this includes techniques or standardized protocols for targeted exams where dose is matched to indication/reason for exam; i.e. extremities or head) *Use of iterative reconstruction technique DLP: 378 mGy-cm FINDINGS: CEREBRAL HEMISPHERES: There is no evidence of intra-axial or extra-axial mass, hemorrhage or acute infarct. BRAIN PARENCHYMA: Normal chopra-white matter differentiation. SUBDURAL SPACE: No bleed. BASAL GANGLIA AND PINEAL GLAND: Unremarkable VENTRICLES: Symmetric and normal in size. CEREBELLUM AND BRAINSTEM: No space-occupying mass, hemorrhage or acute infarct. CEREBELLOPONTINE ANGLES: No lesion found. ORBITS: No intraorbital mass. VESSELS: Unremarkable SKULL BASE: Unremarkable INCLUDED SINUSES AT SKULL BASE: Clear SKULL AND SKIN: No fracture or bone lesion found. CT/CT head/brain wo con IMPRESSION: No CT evidence of intracranial space-occupying mass, bleed or infarct.
--- NOTE | ~2021-12-01 | XR_ITS ---
EXAMINATION: X-RAY LEFT HAND CLINICAL INFORMATION: Wrist pain. COMPARISON: Radiograph of the left hand dated from 03/07/2021. TECHNIQUE: 3 views of the left hand were obtained. FINDINGS: No acute fractures or malalignment. Carpal rows are maintained. The scapholunate interval is within normal limits. Mild nonspecific diffuse soft tissue swelling. No unexpected foreign bodies. XR/XR hand wrist LT IMPRESSION: No acute fractures or malalignment.
--- NOTE | ~2021-12-01 | XR_ITS ---
EXAMINATION: XR TIBIA AND FIBULA, LEFT CLINICAL INFORMATION: Pain to the tibia/fibula. COMPARISON: Radiograph of the left ankle dated from 05/29/2019. TECHNIQUE: AP and lateral views of the left tibia and fibula were obtained. FINDINGS: The bones and soft tissues are normal. No fracture. No osseous lesions. XR/XR tibia fibula LT 2V IMPRESSION: Normal left tibia and fibula.
--- NOTE | ~2021-12-01 | CT_ITS ---
EXAMINATION: CT CERVCAL SPINE WITHOUT CONTRAST CLINICAL INFORMATION: Neck pain COMPARISON: None TECHNIQUE: CT cervical spine without contrast. This CT examination was performed using dose optimization techniques as appropriate, variously including the following: *Automated exposure control *Adjustment of mA and/or kV according to patient size (this includes techniques or standardized protocols for targeted exams where dose is matched to indication/reason for exam; i.e. extremities or head) *Use of iterative reconstruction technique DLP: 742 mGy-cm FINDINGS: 7 cervical vertebrae identified maintaining proper height and alignments. Mild narrowing of disc space at C7-T1 suggests underlying degenerative disc disease. Included structures at skull base are normal. Atlantoaxial joint is intact. Spinal levels: C2-C3: No fracture. No central or foraminal stenosis. C3-C4: No fracture. No central or foraminal stenosis. C4-C5: No fracture. No central or foraminal stenosis. C5-C6: No fracture. No central or foraminal stenosis. C6-C7: No fracture. No central or foraminal stenosis. C7-T1: No fracture. No central or foraminal stenosis. Incidental finding was made of partially calcified soft tissue structure in the left external auditory canal 1 x 0.[address]/CT cervical spine wo con IMPRESSION: *No CT evidence of fracture. *Minimal narrowing of disc space C7-T1 suggests underlying degenerative disc disease. Incidental finding was made of 1 cm partially calcified soft tissue structure in the left external auditory canal. Please correlate with the clinical exam. Fleischner guidelines were followed.
[2021-12-01 16:57] VITALS: BP 127/64; PULSE 98; RESP 16; TEMP 36.9; O2SAT 98; BMI 23.7
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
[2021-12-01 20:16] VITALS: BP 122/60; PULSE 84; RESP 12; TEMP 36.8; O2SAT 99
== END 2021-12-01 21:08 | disposition home or self-care (01) ==
PROVIDERS: Emergency Provider Internal Medicine; PCP Physician Assistant
DX: M25.532 Pain in left wrist (principal); M79.605 Pain in left leg; M54.2 Cervicalgia; M54.50 Low back pain, unspecified; G44.309 Post-traumatic headache, unspecified, not intractable; Z79.899 Other long term (current) drug therapy
CPT/HCPCS: 70450; 72125; 73110; 73130; 73590; 99283; 99284

== ENCOUNTER → 2021-12-04 10:06 | Outpatient (BNVA) | payer OTHER, SELFPAY | PROVIDERS: PCP Physician Assistant; Visit Provider Anesthesiology | DX: G89.4 Chronic pain syndrome (principal); M51.37 Other intervertebral disc degeneration, lumbosacral region; M47.16 Other spondylosis with myelopathy, lumbar region; Z79.891 Long term (current) use of opiate analgesic | CPT/HCPCS: 99212 ==

== ENCOUNTER → 2022-01-03 13:45 | Outpatient (BNVA) | payer OTHER, SELFPAY | PROVIDERS: PCP Physician Assistant; Visit Provider Anesthesiology | DX: Z13.89 Encounter for screening for other disorder (principal) ==

== ENCOUNTER → 2022-02-02 14:07 | Outpatient (BNVA) | payer OTHER, SELFPAY | PROVIDERS: PCP Physician Assistant; Visit Provider Anesthesiology | DX: Z13.89 Encounter for screening for other disorder (principal) ==

== ENCOUNTER 2022-03-07 | Emergency (ER) | payer OTHER, SELFPAY ==
--- NOTE | ~2022-03-07 | XR_ITS ---
EXAMINATION: XR CHEST CLINICAL INFORMATION: Shortness of breath COMPARISON: 10/05/2019 TECHNIQUE: 2 views of the chest were obtained. FINDINGS: No significant abnormality is noted involving the heart, lungs, mediastinum, bony thorax or soft tissues. XR/XR chest 2V IMPRESSION: Unremarkable examination.
--- NOTE | 2022-03-07 00:08 | ECG_ITS ---
Test Reason : SOB Blood Pressure : / mmHG Vent. Rate : 093 BPM Atrial Rate : 093 BPM P-R Int : 128 ms QRS Dur : 090 ms QT Int : 340 ms P-R-T Axes : 060 042 053 degrees QTc Int : 422 ms Normal sinus rhythm Normal ECG When compared with ECG of 09-JUL-2020 17:41, Nonspecific T wave abnormality now evident in Lateral leads Referred By: Generic ED Physician Electronically Signed By:IMELDA WILKINS MD
[2022-03-07 00:25] LABS: Hematocrit 36.7 % (42.0-52.0); Hemoglobin 11.9 g/dl (14.0-18.0); Mean Corpuscular HGB Conc 32.4 g/dl (31.0-36.0); Mean Corpuscular Hemoglobin 25.8 pg (27.0-33.0); Mean Corpuscular Volume 79.6 fL (80.0-98.0); Platelet Count 237 X10*3/uL (160-400); Red Blood Count 4.61 X10*6/uL (4.60-5.80); Red Cell Distribution Width 12.3 % (11.0-16.0); White Blood Count 4.9 X10*3/uL (4.8-10.8)
[2022-03-07 00:33] VITALS: BP 127/73; PULSE 118; RESP 22; TEMP 36.6; O2SAT 99; BMI 22.4
[2022-03-07 00:44] LABS: Alanine Aminotransferase 25 U/L (0-40); Albumin Level 4.3 g/dL (3.5-5.0); Alkaline Phosphatase 60 U/L (39-117); Anion Gap 13 (12-20); Aspartate Amino Transferase 16 U/L (5-37); Bilirubin Total 0.6 mg/dL (0.0-1.0); Blood Urea Nitrogen 16 mg/dL (9-16); Calcium 9.6 mg/dL (8.4-10.2); Carbon Dioxide 24 mmol/L (22-29); Chloride 105 mmol/L (96-108); Creatinine Clr Calc Pharmacy 136.9; Estimated Glomerular Filt Rate > 60; Glucose Random 125 mg/dL (60-115); Potassium 3.6 mmol/L (3.3-5.1); Sodium 138 mmol/L (135-145); Total Protein 6.8 g/dL (6.5-8.0)
[2022-03-07 00:59] LABS: COVID-19 Test Negative (Negative); IDNOW Serial# 16C4AD1C
[2022-03-07 01:00] LABS: Influenza A Negative (Negative); Influenza B2 Negative (Negative)
== END 2022-03-07 03:45 | disposition left against medical advice (07) ==
PROVIDERS: Emergency Provider Emergency Medicine
DX: R06.00 Dyspnea, unspecified (principal); J45.909 Unspecified asthma, uncomplicated; Z51.81 Encounter for therapeutic drug level monitoring; Z79.891 Long term (current) use of opiate analgesic; Z20.822 Contact with and (suspected) exposure to COVID-19
CPT/HCPCS: 36415; 71046; 80053; 85027; 87502; 87635; 93005; 99211; 99281; 99283

== ENCOUNTER 2022-03-23 16:08 | Outpatient (REF) | payer OTHER, SELFPAY ==
--- NOTE | ~2022-03-23 | XR_ITS ---
EXAMINATION: XR HAND WRIST, LEFT CLINICAL INFORMATION: Injury. Pain COMPARISON: Radiographs left hand and wrist 12/01/2021 TECHNIQUE: The left hand and wrist are imaged together in 4 large [id number] images. A navicular view of the left wrist is also included for a total of 5 views. FINDINGS: There is no acute or healing fracture, dislocation, destructive process. The ulnar variance is neutral. Bony mineralization is normal. Pronator quadratus fat pad appears normal. There is no joint narrowing or erosive change or chondrocalcinosis. XR/XR hand wrist LT IMPRESSION: Normal study.
== END 2022-03-23 16:09 | disposition home or self-care (01) ==
LOC: HO.XRAY 16:08
PROVIDERS: PCP Physician Assistant; Visit Provider Physician Assistant
DX: S69.92XA Unspecified injury of left wrist, hand and finger(s), initial encounter (principal)
CPT/HCPCS: 73110; 73130

== ENCOUNTER → 2022-04-10 15:02 | Outpatient (BNVA) | payer OTHER, SELFPAY | PROVIDERS: PCP Physician Assistant; Visit Provider Anesthesiology | DX: Z79.891 Long term (current) use of opiate analgesic (principal) | CPT/HCPCS: 99211 ==

== ENCOUNTER → 2022-05-09 15:38 | Outpatient (BNVA) | payer OTHER, SELFPAY | PROVIDERS: PCP Physician Assistant; Visit Provider Anesthesiology | DX: M51.37 Other intervertebral disc degeneration, lumbosacral region (principal); G89.4 Chronic pain syndrome; M47.16 Other spondylosis with myelopathy, lumbar region; Z79.891 Long term (current) use of opiate analgesic | CPT/HCPCS: 99212 ==

== ENCOUNTER 2022-06-07 08:36 | Outpatient (REF) | payer OTHER, SELFPAY | END 2022-06-07 08:37 | disposition home or self-care (01) | LOC: HO.LAB 08:36 | PROVIDERS: PCP Physician Assistant; Visit Provider Anesthesiology | DX: M51.37 Other intervertebral disc degeneration, lumbosacral region (principal); G89.4 Chronic pain syndrome; M47.16 Other spondylosis with myelopathy, lumbar region | CPT/HCPCS: 99212 ==

== ENCOUNTER → 2022-07-09 15:17 | Outpatient (BNVA) | payer OTHER, SELFPAY | PROVIDERS: PCP Physician Assistant; Visit Provider Anesthesiology | DX: Z51.81 Encounter for therapeutic drug level monitoring (principal); F11.20 Opioid dependence, uncomplicated; M51.37 Other intervertebral disc degeneration, lumbosacral region; M47.16 Other spondylosis with myelopathy, lumbar region; G89.4 Chronic pain syndrome | CPT/HCPCS: 99212 ==

== ENCOUNTER → 2022-08-08 16:02 | Outpatient (BNVA) | payer OTHER, SELFPAY | PROVIDERS: PCP Physician Assistant; Visit Provider Anesthesiology | DX: M51.37 Other intervertebral disc degeneration, lumbosacral region (principal); G89.4 Chronic pain syndrome; M47.16 Other spondylosis with myelopathy, lumbar region; Z51.81 Encounter for therapeutic drug level monitoring | CPT/HCPCS: 99212 ==

== ENCOUNTER → 2022-10-03 14:56 | Outpatient (BNVA) | payer OTHER, SELFPAY | PROVIDERS: PCP Physician Assistant; Visit Provider Anesthesiology | DX: Z13.89 Encounter for screening for other disorder (principal) ==

== ENCOUNTER → 2022-11-05 14:49 | Outpatient (BNVA) | payer OTHER, SELFPAY | PROVIDERS: PCP Physician Assistant; Visit Provider Anesthesiology | DX: Z13.89 Encounter for screening for other disorder (principal) ==

== ENCOUNTER → 2022-12-05 15:16 | Outpatient (BNVA) | payer OTHER, SELFPAY | PROVIDERS: PCP Physician Assistant; Visit Provider Anesthesiology | DX: M47.817 Spondylosis without myelopathy or radiculopathy, lumbosacral region (principal); M51.37 Other intervertebral disc degeneration, lumbosacral region; M54.2 Cervicalgia; G89.4 Chronic pain syndrome; F11.20 Opioid dependence, uncomplicated; Z51.81 Encounter for therapeutic drug level monitoring; Z79.899 Other long term (current) drug therapy | CPT/HCPCS: 99212 ==

== ENCOUNTER → 2023-01-02 15:49 | Outpatient (BNVA) | payer OTHER, SELFPAY | PROVIDERS: PCP Physician Assistant; Visit Provider Anesthesiology | DX: Z51.81 Encounter for therapeutic drug level monitoring (principal); F11.20 Opioid dependence, uncomplicated | CPT/HCPCS: 99211 ==

== ENCOUNTER → 2023-02-04 16:23 | Outpatient (BNVA) | payer OTHER, SELFPAY | PROVIDERS: PCP Physician Assistant; Visit Provider Anesthesiology | DX: M47.16 Other spondylosis with myelopathy, lumbar region (principal); M51.37 Other intervertebral disc degeneration, lumbosacral region; M54.2 Cervicalgia; G89.4 Chronic pain syndrome; Z79.891 Long term (current) use of opiate analgesic | CPT/HCPCS: 99212 ==

== ENCOUNTER → 2023-03-06 16:21 | Outpatient (BNVA) | payer OTHER, SELFPAY | PROVIDERS: PCP Physician Assistant; Visit Provider Anesthesiology | DX: Z79.891 Long term (current) use of opiate analgesic (principal) | CPT/HCPCS: 99211 ==

== ENCOUNTER → 2023-04-03 15:47 | Outpatient (BNVA) | payer OTHER, SELFPAY | PROVIDERS: PCP Physician Assistant; Visit Provider Registered Nurse Emergency | DX: G89.4 Chronic pain syndrome (principal); M51.37 Other intervertebral disc degeneration, lumbosacral region; M47.16 Other spondylosis with myelopathy, lumbar region; Z79.891 Long term (current) use of opiate analgesic | CPT/HCPCS: 99212 ==

== ENCOUNTER → 2023-05-03 15:45 | Outpatient (BNVA) | payer OTHER, SELFPAY | PROVIDERS: PCP Physician Assistant; Visit Provider Registered Nurse Emergency | DX: M51.37 Other intervertebral disc degeneration, lumbosacral region (principal); M47.16 Other spondylosis with myelopathy, lumbar region; G89.4 Chronic pain syndrome; Z79.891 Long term (current) use of opiate analgesic | CPT/HCPCS: 99212 ==

== ENCOUNTER 2023-05-03 15:46 | Outpatient (AMB) | payer OTHER, SELFPAY ==
[2023-05-03 15:50] VITALS: BP 134/74; PULSE 86; RESP 16; O2SAT 98; BMI 24.4
--- NOTE | 2023-05-03 15:50 | MHC.OFFVIS ---
Intake Vital Signs 05/03/23 15:50 Height 5 ft 8 in Weight 160 lb 8 oz BMI 24.4 BP 134/74 Blood Pressure Location Lt brachial Position Sitting Respiration 16 Pulse 86 Pulse Source Pulse Oximeter Pulse Oximetry (%) 98 Oxygen Delivery Method Room Air Intake Visit Reasons: Pill count Allergies shellfish derived [SHELLFISH DERIVED] Allergy (Unknown, Verified 05/03/23 15:49) ANAPHYLAXIS gabapentin Adverse Reaction (Unknown, Verified 05/03/23 15:49) dizziness ibuprofen [IBUPROFEN] Adverse Reaction (Unknown, Verified 05/03/23 15:49) UPSET STOMACH, headache naproxen [NAPROXEN] Adverse Reaction (Unknown, Verified 05/03/23 15:49) DIZZINESS, UPSET STOMACH, headache HPI HPI Comments History of Present Illness Details Jean Claude is a very pleasant 28 year old male who presents to the office today for follow up chronic pain and chronic opioid therapy management. Patient is prescribed oxycodone acetaminophen 5-325mg take 1 tablet three times daily as needed. Patient arrived today with the expectation of having 9 pills, he presented 8 pills which were counted in the presence of two staff members and returned to the patient in the original prescription bottle. This demonstrates responsible attitude toward patient's opioid medications. Pain is reported today as 7/10 and last dose of pain medication was taken at 2:45pm today. Pain is adequately managed on current opioid regimen. Patient denies any recent changes or exacerbations of chronic back pain and states he is able to engage in activities of daily living with minimal interruption due to chronic pain. Patient reports his opioid medications allow him to be active and participate in recreational activities. Patient denies side effects including somnolence, dizziness, weakness or constipation. Previously: ?I performed bilateral medial branch block L3-L4 does ramus L5 diagnostic without any steroids to find out whether or not this procedure will help his pain. on 03/28/2021.? He reported around 50% pain relief after the injections.? Unfortunately this is not good enough for me to perform any definite treatment such as radiofrequency ablation.? ? At the same time the MRI is quite non impressive for this gentleman.? The only level he has is actually L5-S1 level. ? He was under care of [facility] for long period of time with this complaint.? He had an MRI of the lumbar spine which is dictated as below.? He had an injection interlaminar epidural steroid injection which caused him severe headache and loss of consciousness as well as paralysis of bilateral lower extremities.? He reports that he is involved in malpractice lawsuit against the practitioner who performed this injection. PHQ score is very much alleviate and 10 equal to 19. I his opioid risk assessment score is equal to 7. total score is 26 [facility] Medical History Anxiety Arthritis Cervicalgia Chronic pain syndrome Degeneration of lumbosacral intervertebral disc Spondylosis of lumbosacral region SVT (supraventricular tachycardia) Surgical History History of lung surgery Family History Father Cancer Mother Mental health disorder Social History Housing: Apartment Alcohol intake: never Patient Tobacco Use Status: Never used Tobacco e-Cigarette/Vaping Use: Never Used Second Hand Smoke Exposure: No service: No Current occupational status: disabled Cognitive needs: Yes (cane) Hearing needs: No Vision needs: No Review of Systems Const All systems reviewed & are unremarkable except as noted in HPI and below Physical Exam Vital Signs: Last Vital Signs Pulse 86 05/03/23 15:50 Resp 16 05/03/23 15:50 BP 134/74 05/03/23 15:50 Pulse Ox 98 05/03/23 15:50 Oxygen Delivery Method Room Air 05/03/23 15:50 BMI result Body Mass Index 24.4 Const Other: General: awake, alert, oriented. Answers questions appropriately. Fully engaged in examination. Skin: warm, dry, intact without visible rashes or lesions. HEENT: Normocephalic. Conjuntivae clear without exudate. Sclera non-icteric. Hearing intact. Cardiac: External chest normal in appearance. Respiratory: No signs of trauma. No signs of respiratory distress. No cough, audible wheezing or stridor. Abdomen: without gross distension. MS: No obvious swelling or deformities. Able to transition from sit to stand unassisted. Ambulates with bilaterally normal heel strike and toe off Neurological: Oriented to person, place, time and situation. Thought process intact. No gait abnormalities appreciated. Psychiatric: Appropriate mood and affect. Good judgment and insight. Assessment & Plan Assessment & Plan (1) Degeneration of lumbosacral intervertebral disc: Code(s): M51.37 - Other intervertebral disc degeneration, lumbosacral region (2) Chronic pain syndrome: Code(s): G89.4 - Chronic pain syndrome (3) Spondylosis of lumbosacral region: Code(s): M47.817 - Spondylosis without myelopathy or radiculopathy, lumbosacral region Qualifiers: Spinal osteoarthritis complication: with myelopathy Qualified Code(s): M47.16 - Other spondylosis with myelopathy, lumbar region Plan [place] was reviewed and without concerns. No obvious signs of diversion, abuse or misuse of the opioid medications. Will send in prescription for oxycodone/acetaminophen 5-325 mg TID PRN with an advanced date of 05/07/2023. Patient to follow-up in the office in 1 month, sooner if needed. All questions and concerns have been answered and patient agrees with the plan. Medications: Refilled oxycodone-acetaminophen 5-325 mg 1 tab PO TID PRN 90 tabs 0RF pain, severe 30 days Coding Level of Care Code Est Pt Level 3 (70193) Diagnoses Degeneration of lumbosacral intervertebral disc M51.37 Chronic pain syndrome G89.4 Spondylosis of lumbosacral region M47.16 Spinal osteoarthritis complication: with myelopathy
== END 2023-05-03 15:54 | disposition home or self-care (01) ==
PROVIDERS: PCP Physician Assistant; Visit Provider Registered Nurse Emergency
DX: M51.37 Other intervertebral disc degeneration, lumbosacral region (principal); G89.4 Chronic pain syndrome; M47.16 Other spondylosis with myelopathy, lumbar region
CPT/HCPCS: 99213

== ENCOUNTER 2023-06-03 16:21 | Outpatient (AMB) | payer OTHER, SELFPAY ==
--- NOTE | 2023-06-03 16:25 | A.OFFVIS_ITS ---
Intake Vital Signs 06/03/23 16:26 Height 5 ft 8 in Weight 160 lb BMI 24.3 BP 134/74 Blood Pressure Location Rt brachial Position Sitting Pulse 77 Pulse Source Pulse Oximeter Pulse Oximetry (%) 98 Oxygen Delivery Method Room Air Intake Visit Reasons: PILL COUNT Intake Note: Jean Claude comes in today for a pill count to oxycodone-acetaminophen, patient should have 6 tablets and presents with 6 tablets which he last took today 06/03/23 at 3:30pm. Pain today 710. 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 Accompanied by: Self / Same As Patient Allergies shellfish derived [SHELLFISH DERIVED] Allergy (Unknown, Verified 06/03/23 16:27) ANAPHYLAXIS gabapentin Adverse Reaction (Unknown, Verified 06/03/23 16:27) dizziness ibuprofen [IBUPROFEN] Adverse Reaction (Unknown, Verified 06/03/23 16:27) UPSET STOMACH, headache naproxen [NAPROXEN] Adverse Reaction (Unknown, Verified 06/03/23 16:27) DIZZINESS, UPSET STOMACH, headache HPI HPI Comments History of Present Illness Details Jean Claude is a very pleasant 28 year old male who presents to the office today for follow up chronic pain and chronic opioid therapy management. He is on oxycodone acetaminophen 5-325mg take 1 tablet three times daily as needed. His supposed to have 6 pills in his possession. He came with 6 pills in his possession. This demonstrates responsible attitude toward patient's opioid medications. Pain is reported today as 4/10 and last dose of pain medication was taken at 30 minutes ago.. Pain is adequately managed on current opioid regimen. Patient denies any recent changes or exacerbations of chronic back pain and states he is able to engage in activities of daily living with minimal interruption due to chronic pain. Patient reports his opioid medications allow him to be active and participate in recreational activities. Patient denies side effects including somnolence, dizziness, weakness or constipation. Previously: ?I performed bilateral medial branch block L3-L4 does ramus L5 diagnostic without any steroids to find out whether or not this procedure will help his pain. on 03/28/2021.? He reported around 50% pain relief after the injections.? Unfortunately this is not good enough for me to perform any definite treatment such as radiofrequency ablation.? ? At the same time the MRI is quite non impressive for this gentleman.? The only level he has is actually L5-S1 level. ? He was under care of [facility] for long period of time with this complaint.? He had an MRI of the lumbar spine which is dictated as below.? He had an injection interlaminar epidural steroid injection which caused him severe headache and loss of consciousness as well as paralysis of bilateral lower extremities.? He reports that he is involved in malpractice lawsuit against the practitioner who performed this injection. PHQ score is very much alleviate and 10 equal to 19. I his opioid risk assessment score is equal to 7. total score is 26 PFSH Medical History Anxiety Arthritis Cervicalgia Chronic pain syndrome Degeneration of lumbosacral intervertebral disc Spondylosis of lumbosacral region SVT (supraventricular tachycardia) Surgical History History of lung surgery Family History Father Cancer Mother Mental health disorder Social History Housing: Apartment Alcohol intake: never Patient Tobacco Use Status: Never used Tobacco e-Cigarette/Vaping Use: Never Used Second Hand Smoke Exposure: No service: No Current occupational status: disabled Cognitive needs: Yes (cane) Hearing needs: No Vision needs: No Review of Systems Neuro Denies Abnormal speech present Physical Exam Vital Signs: Last Vital Signs Pulse 77 06/03/23 16:26 BP 134/74 06/03/23 16:26 Pulse Ox 98 06/03/23 16:26 Oxygen Delivery Method Room Air 06/03/23 16:26 BMI result Body Mass Index 24.3 Const General: cooperative, healthy appearing, comfortable, no acute distress and alert Nutritional Appearance: average body habitus Orientation/consciousness: patient oriented x3 Limitations: no limitations HEENT Head: Yes normocephalic and Yes atraumatic Ears: hearing grossly normal bilaterally Eyes General: appearance normal, both eyes and all related structures Eyelids: Yes eyelids normal Pupils: Equal, round and reactive pupils present EOM: EOMs intact bilaterally Neck Neck: Yes normal visual inspection, Yes full ROM and Yes no JVD Resp Effort & Inspection: normal respiratory effort, able to speak in complete sentences and no audible wheezes Cardio Jugular venous distension: no JVD Neuro General: patient oriented x3 Cranial nerves: Yes Equal, round and reactive pupils present Speech: No Abnormal speech present Results Reviewed Results Reviewed: 7 cervical vertebrae identified maintaining proper height and alignments. Mild narrowing of disc space at C7-T1 suggests underlying degenerative disc disease. Included structures at skull base are normal. Atlantoaxial joint is intact. ? Spinal levels: C2-C3: No fracture. No central or foraminal stenosis.? C3-C4: No fracture. No central or foraminal stenosis.? C4-C5: No fracture. No central or foraminal stenosis.? C5-C6: No fracture. No central or foraminal stenosis.? C6-C7: No fracture. No central or foraminal stenosis.? C7-T1: No fracture. No central or foraminal stenosis. Incidental finding was made of partially calcified soft tissue structure in the left external auditory canal 1 x 0.4 cm. Nonspecific. Assessment & Plan Assessment & Plan (1) Degeneration of lumbosacral intervertebral disc: Code(s): M51.37 - Other intervertebral disc degeneration, lumbosacral region (2) Chronic pain syndrome: Code(s): G89.4 - Chronic pain syndrome (3) Spondylosis of lumbosacral region: Code(s): M47.817 - Spondylosis without myelopathy or radiculopathy, lumbosacral region Qualifiers: Spinal osteoarthritis complication: with myelopathy Qualified Code(s): M47.16 - Other spondylosis with myelopathy, lumbar region Plan Masspat was reviewed and without concerns. No obvious signs of diversion, abuse or misuse of the opioid medications. Will send in prescription for oxycodone/acetaminophen 5-325 mg TID PRN with an advanced date of 06/06/2023 Patient to follow-up in the office in 1 month, sooner if needed. All questions and concerns have been answered and patient agrees with the plan. Medications: Refilled oxycodone-acetaminophen 5-325 mg 1 tab PO TID 30 days PRN 90 tabs 0RF pain, severe Coding Level of Care Code Est Pt Level 3 (37487) Diagnoses Degeneration of lumbosacral intervertebral disc M51.37 Chronic pain syndrome G89.4 Spondylosis of lumbosacral region M47.16 Spinal osteoarthritis complication: with myelopathy
[2023-06-03 16:26] VITALS: BP 134/74; PULSE 77; O2SAT 98; BMI 24.3
== END 2023-06-03 16:27 | disposition home or self-care (01) ==
PROVIDERS: PCP Physician Assistant; Visit Provider Anesthesiology
DX: M51.37 Other intervertebral disc degeneration, lumbosacral region (principal); G89.4 Chronic pain syndrome; M47.16 Other spondylosis with myelopathy, lumbar region
CPT/HCPCS: 99213

== ENCOUNTER → 2023-06-03 16:21 | Outpatient (BNVA) | payer OTHER, SELFPAY | PROVIDERS: PCP Physician Assistant; Visit Provider Anesthesiology | DX: G89.4 Chronic pain syndrome (principal); M51.37 Other intervertebral disc degeneration, lumbosacral region; M47.817 Spondylosis without myelopathy or radiculopathy, lumbosacral region; Z79.891 Long term (current) use of opiate analgesic | CPT/HCPCS: 99212 ==

== ENCOUNTER → 2023-06-27 10:49 | Outpatient (BNVA) | payer OTHER, SELFPAY | PROVIDERS: PCP Physician Assistant; Visit Provider Anesthesiology | DX: Z79.891 Long term (current) use of opiate analgesic (principal) | CPT/HCPCS: 99211 ==

== ENCOUNTER 2023-07-18 15:44 | Outpatient (AMB) | payer OTHER, SELFPAY ==
[2023-07-18 15:55] VITALS: BP 118/60; PULSE 92; RESP 16; O2SAT 98; BMI 25.2
--- NOTE | 2023-07-18 15:55 | MHC.PC.OV ---
Vital Signs 07/18/23 15:55 Height 5 ft 8 in Weight 166 lb BMI 25.2 BP 118/60 Blood Pressure Location Lt brachial Position Sitting Respiration 16 Pulse 92 Pulse Source Pulse Oximeter Pulse Oximetry (%) 98 Oxygen Delivery Method Room Air Intake Visit Reasons: Med review Intake Note: Patient is here today for a physical/ADHD medication. 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 Accompanied by: Self / Same As Patient Allergies shellfish derived [SHELLFISH DERIVED] Allergy (Unknown, Verified 07/18/23 16:22) ANAPHYLAXIS gabapentin Adverse Reaction (Unknown, Verified 07/18/23 16:22) dizziness ibuprofen [IBUPROFEN] Adverse Reaction (Unknown, Verified 07/18/23 16:22) UPSET STOMACH, headache naproxen [NAPROXEN] Adverse Reaction (Unknown, Verified 07/18/23 16:22) DIZZINESS, UPSET STOMACH, headache Medication List - Last Reconciled 07/18/23 by Max Osuna PA-C albuterol sulfate 90 mcg/actuation (Ventolin HFA) 2 puffs inhalation Q4-6H PRN [id number] 50-325-40 mg 1 tab PO Q6H PRN dextroamphetamine-amphetamine 30 mg ER 1 cap PO QAM 30 days diclofenac potassium 50 mg PO BID 7 days diclofenac sodium 1% 2 grams topical TID fluticasone propion-salmeterol 55-14 mcg/actuation 1 inh inhalation BID 30 days oxycodone-acetaminophen 5-325 mg 1 tab PO TID PRN 30 days Tobacco use date assessed: 07/18/23 Dental Screening Dental Screen Date: 07/18/23 Did you have a dental visit in the last 12 months?: No Did you have a dental problem in the last 6 months where you did not have access to dental care?: No Was dental information given to patient?: Patient has dentist HPI Med review HPI Details Patient is a 28-year-old male here today for an annual physical. Patient has a past medical history significant for lumbar disc disease, ADHD, asthma, migraines. .. Lumbar disc disease: Continues to follow with pain management here in [place]. He does seldomly get injections in his lower lumbar spine. Continues on narcotic pain medication as part of his pain management. .. ADHD : Was seeing a Window Clerk and was being prescribed adderal though has lost his follow-up with Psychiatry. Due to not having a vehicle he was not able to make it to appointments here the PCP office or at new psychiatry office. Now has a vehicle and is willing to be established again with a psychiatrist to continue monitoring and evaluating his ADHD and anxiety. .. Asthma: Has been fairly well controlled though does report having some exacerbations in his asthma during changes of seasons and in ginny environments. Has not had any access to his maintenance inhaler and a while due to [place] sure it is coverage. Does use an albuterol inhaler on a p.r.n. basis VAccine:UTD with COVID vaccine , Considering flu vaccine [facility] Medical History Cervicalgia Spondylosis of lumbosacral region Chronic pain syndrome Degeneration of lumbosacral intervertebral disc Arthritis SVT (supraventricular tachycardia) Anxiety Surgical History History of lung surgery Family History Father Cancer Mother Mental health disorder Social History Housing: Apartment Alcohol intake: never Patient Tobacco Use Status: Never used Tobacco e-Cigarette/Vaping Use: Never Used Second Hand Smoke Exposure: No service: No Current occupational status: disabled Cognitive needs: Yes (cane) Hearing needs: No Vision needs: No Questionnaire PHQ-9 Over the last 2 weeks, how often have you been bothered by any of the following problems? 1. Little interest or pleasure in doing things: not at all 2. Feeling down, depressed, or hopeless: not at all 3. Trouble falling or staying asleep, or sleeping too much: not at all 4. Feeling tired or having little energy: not at all 5. Poor appetite or overeating: not at all 6. Feeling bad about yourself - or that you are a failure or have let yourself or your family down: not at all 7. Trouble concentrating on things, such as reading the newspaper or watching television: not at all 8. Moving or speaking so slowly that other people could have noticed. Or the opposite - being so fidgety or restless that you have been moving around a lot more than usual: not at all 9. Thoughts that you would be better off or of hurting yourself in some way: not at all Total score: 0 Depression Screening Interpretation: Negative Depression Screening Done: Yes 87612 - PHQ-9 Billing: Yes Source: Developed by Drs. Jacques Cesar, Aubree Carrasquillo, Cricket Napoles and colleagues, with an educational yamilex from [employer]. Thrive Questionnaire Date Thrive assessed: 07/18/23 I am a: Patient What is your living situation today?: I have a steady place to live Within the past 12 months, did the food you bought not last and you didn't have the money to get more?: Never true Within the past 12 months, did you worry whether your food would run out before you got money to buy more?: Never true Do you have trouble paying for medicines?: No Do you have trouble getting transportation to medical appointments?: No Do you have trouble paying your heating and electricity bill?: No Do you have trouble taking care of your child, family member or friend?: No Do you have trouble with day-to-day activities such as bathing, preparing meals, shopping, managing finances, etc.?: No Are you currently unemployed and looking for a job?: No Are you interested in more education?: No Please select the resources that you would like help with: None Currently or been in a relationship where the following occur: no concerns reported AUDIT C Alcohol Use Questionnaire (AUDIT-C) 1. How often do you have a drink containing alcohol?: Never 3. How often do you have six or more drinks on one occasion?: Never Total Score: 0 ANN-7 AMB Questionnaire ANN-7 Date ANN - 7 assessed: 07/18/23 Feeling nervous, anxious, or on edge: 3 = Nearly every day Not being able to stop or control worryin = More than half the days Worrying too much about different things: 2 = More than half the days Trouble relaxin = More than half the days Being so restless that it is hard to sit still: 2 = More than half the days Becoming easily annoyed or irritable: 2 = More than half the days Feeling afraid as if something awful might happen: 1 = Several days Total ANN-7 score (0-4 normal; 5-9 mild; 10-14 moderate; 15-21 severe): 14 Source: Developed by Drs. Jacques Cesar, Aubree Carrasquillo, Cricket Napoles and colleagues, with an educational yamilex from [employer]. ANN-7 Assessment Billing ANN-7 Assessment Tool: ANN-7 Assessment 17390 Review of Systems Const Denies body aches, Denies chills, Denies excessive sweating, Denies fatigue, Denies fever(s) and Denies headache(s) Eyes Denies blurry vision ENT Denies dysphagia, Denies vertigo, Denies dizziness, Denies headache(s), Denies hearing loss and Denies tinnitus Card Denies chest pain, Denies chest pain with activity, Denies syncope, Denies irregular heart rhythm and Denies dyspnea Resp Denies chest congestion, Denies cough, Denies hemoptysis, Denies dyspnea and Denies wheezing GI Denies abdominal pain, Denies melena, Denies hematochezia, Denies coffee ground emesis, Denies dysphagia, Denies diarrhea, Denies nausea and Denies vomiting Denies difficulty urinating, Denies dysuria, Denies urinary frequency, Denies urinary hesitancy and Denies urinary urgency Musc Denies arthralgias, Denies limited range of motion, Denies muscle cramps and Denies muscle weakness Skin/Breast Denies rash and Denies skin ulcer Neuro Denies Abnormal speech present, Denies confusion, Denies vertigo, Denies dizziness, Denies syncope, Denies headache(s), Denies memory loss and Denies seizure-like activity Psych Denies anxiety, Denies confusion, Denies depression, Denies memory loss, Denies panic attacks and Denies paranoia Endo Denies excessive sweating, Denies fatigue, Denies flushing, Denies polydipsia and Denies polyuria Aller/Immun Denies wheezing Physical exam (Primary Care) Vital Signs: Last Vital Signs Pulse 92 07/18/23 15:55 Resp 16 07/18/23 15:55 BP 118/60 07/18/23 15:55 Pulse Ox 98 07/18/23 15:55 Oxygen Delivery Method Room Air 07/18/23 15:55 BMI result Body Mass Index 25.2 Tobacco/Smoking Status: Tobacco use Status Tobacco use date assessed 07/18/23 07/18/23 16:02 Patient Tobacco Use Status Never used Tobacco 07/18/23 15:59 e-Cigarette/Vaping Use Never Used 07/18/23 15:59 PHQ-9: PHQ-9 Score PHQ-9: Total score 0 07/18/23 16:24 Depression Screening Interpretation: Negative Thrive Assessment: Date of Thrive Assessment Date Thrive assessed 07/18/23 07/18/23 16:07 Currently or been in a relationship where the following occur: no concerns reported Const General: cooperative, comfortable, no acute distress, alert and awake; No confusion Orientation/consciousness: oriented to person, oriented to place, patient oriented x3 and No confusion HENMT Head: Yes normocephalic Ears: external ears normal and TM's normal bilaterally Face and sinus: No sinus tenderness Mouth: Normal oral and palatal mucosa present and tongue normal Teeth and gingiva: dentition normal and gingiva normal Throat: Yes posterior oropharynx normal, Yes tonsils normal and Yes uvula midline Eyes Conjunctivae: conjunctivae normal Sclerae: sclerae normal Pupils: Equal, round and reactive pupils present EOM: EOMs intact bilaterally Direct Ophthalmoscopy: No no photophobia Neck Neck: Yes no lymphadenopathy, No tender and Yes no JVD Thyroid: Thyroid normal Carotids: no bruits Chest Chest palpation & inspection: no tenderness Resp Effort & Inspection: normal respiratory effort, no audible wheezes, not labored and no stridor Auscultation: no crackles, no rales, no rhonchi and no wheezes Cardio Jugular venous distension: no JVD Rate: regular rate, not bradycardic and not tachycardic Rhythm: regular rhythm Bruits: no carotid bruits Peripheral pulses: Peripheral pulses 2+ throughout GI Inspection: Yes normal to inspection, No abdominal wall ecchymosis and No visible herniation Palpation (GI): Soft to palpation, nontender, no guarding, not rigid and No hepatosplenomegaly present Auscultation: normoactive bowel sounds General: Yes no CVA tenderness Back/Spine/Pelvis Back: no CVA tenderness and No back tenderness Cervical Spine: cervical ROM normal Thoracic/Lumbar Spine: thoracic and lumbar spine normal to inspection, straight leg raise negative bilaterally, No thoraco-lumbar ROM limited and No lumbar spinal tenderness Skin Lesions: no lesions Rashes: no rashes Wounds: no wounds Neuro General: oriented to person, oriented to place, patient oriented x3, CN's II-XI intact bilaterally and No confusion Cranial nerves: Yes Equal, round and reactive pupils present and Yes Normal accommodation reflex present Cognition (Neuro): normal cognition Speech: No Abnormal speech present Gait exam (Neuro): Normal gait present Motor exam (neuro): 5/5 motor strength present throughout Extrem Right upper extremity: full ROM; no cyanosis Left upper extremity: full ROM; no cyanosis Right lower extremity: no edema Left lower extremity: no edema Psych Appearance: grossly normal Mental Status: mental status grossly normal Affect: normal affect Attitude: cooperative Thought process: Normal thought process present Assessment and Plan Assessment & Plan (1) Adult general medical exam: Code(s): Z00.00 - Encounter for general adult medical examination without abnormal findings (2) ADHD: Code(s): F90.9 - Attention-deficit hyperactivity disorder, unspecified type Qualifiers: Attention deficit-hyperactivity disorder type: predominantly hyperactive Qualified Code(s): F90.1 - Attention-deficit hyperactivity disorder, predominantly hyperactive type Plan: Was followed by Psychiatry whom was managing his ADHD with Adderall. Has unfortunately lost follow-up with Psychiatry needs PCP to manage his ADHD. Urine drug screens have been positive for Amphetamines. Now in try to see a new psychiatrist to help manage his ADHD and anxiety. (3) Lumbar disc disease: Code(s): M51.9 - Unspecified thoracic, thoracolumbar and lumbosacral intervertebral disc disorder Plan: Continues to follow pain management. Does on occasion get cortisone injections in his back. Continues to have back pain and is manage with thoracotomy pain medication through [place] pain management. (4) Asthma: Code(s): J45.909 - Unspecified asthma, uncomplicated Qualifiers: Asthma complication type: with acute exacerbation Asthma persistence: persistent Asthma severity: mild Qualified Code(s): J45.31 - Mild persistent asthma with (acute) exacerbation Plan: He reports his asthma has been fairly well controlled with p.r.n. use of albuterol inhaler. Has not been able to get his maintenance inhaler due to insurance coverage. He does report his asthma gets worse during cold winter months. (5) ANN (generalized anxiety disorder): Code(s): F41.1 - Generalized anxiety disorder Plan: Patient's ANN-7 score positive for moderate anxiety. This has been an existing condition for him and reports he gets worse during the holiday season. He is interested in reestablishing care with a mental health therapist and a psychiatrist to help manage his anxiety and ADHD. Medications: Changed From dextroamphetamine-amphetamine 30 mg ER 1 cap PO QAM 30 days 30 caps 0RF F90.9 - Attention-deficit hyperactivity disorder, unspecified type To dextroamphetamine-amphetamine 30 mg ER 1 cap PO QAM 28 days 28 caps 0RF F90.9 - Attention-deficit hyperactivity disorder, unspecified type Refilled albuterol sulfate 90 mcg/actuation (Ventolin HFA) 2 puffs inhalation Q4-6H PRN 18 ea 3RF for wheezing J45.31 - Mild persistent asthma with (acute) exacerbation fluticasone propion-salmeterol 55-14 mcg/actuation 1 inh inhalation BID 30 days 1 ea 3RF J45.31 - Mild persistent asthma with (acute) exacerbation Coding Level of Care Code Est Pt Prev Care 18-39y(90119) Diagnoses Adult general medical exam Z00.00 Attention deficit hyperactivity disorder (ADHD), predominantly hyperactive type F90.1 Attention deficit-hyperactivity disorder type: predominantly hyperactive Lumbar disc disease M51.9 Mild persistent asthma with acute exacerbation J45.31 Asthma complication type: with acute exacerbation Asthma persistence: persistent Asthma severity: mild ANN (generalized anxiety disorder) F41.1 Additional Codes ANN-7 Assessment Billing - ANN-7 Assessment Tool: ANN-7 Assessment [id number] ([id number])
== END 2023-07-18 16:40 | disposition home or self-care (01) ==
PROVIDERS: PCP Physician Assistant; Visit Provider Physician Assistant
DX: Z00.00 Encounter for general adult medical examination without abnormal findings (principal); F90.1 Attention-deficit hyperactivity disorder, predominantly hyperactive type; M51.9 Unspecified thoracic, thoracolumbar and lumbosacral intervertebral disc disorder; J45.31 Mild persistent asthma with (acute) exacerbation; F41.1 Generalized anxiety disorder
CPT/HCPCS: 99395

== ENCOUNTER 2023-07-18 18:24 | Outpatient (REF) | payer OTHER, SELFPAY ==
[2023-07-18 18:36] LABS: Amphetamine Screen Urine POSITIVE (Not Detect); Barbiturates, Urine Not Detected (Not Detect); Benzodiazepines Screen Urine Not Detected (Not Detect); Cannabinoid Screen Urine Not Detected (Not Detect); Cocaine Screen Urine Not Detected (Not Detect); Fentanyl, urine Not Detected (Not Detect); Opiate Screen Urine POSITIVE (Not Detect); Phencyclidine Screen Urine Not Detected (Not Detect)
== END 2023-07-18 18:25 | disposition home or self-care (01) ==
LOC: HO.LNP 18:24
PROVIDERS: Visit Provider Physician Assistant
DX: F90.9 Attention-deficit hyperactivity disorder, unspecified type (principal)
CPT/HCPCS: 80307

== ENCOUNTER 2023-07-31 15:23 | Outpatient (AMB) | payer OTHER, SELFPAY ==
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
[2023-07-31 15:30] VITALS: BP 138/78; PULSE 102; RESP 16; O2SAT 97; BMI 24.8
== END 2023-07-31 15:33 | disposition home or self-care (01) ==
PROVIDERS: PCP Physician Assistant; Visit Provider Anesthesiology
DX: G89.4 Chronic pain syndrome (principal); M51.37 Other intervertebral disc degeneration, lumbosacral region; M47.16 Other spondylosis with myelopathy, lumbar region
CPT/HCPCS: 99213

== ENCOUNTER → 2023-07-31 15:23 | Outpatient (BNVA) | payer OTHER, SELFPAY | PROVIDERS: PCP Physician Assistant; Visit Provider Anesthesiology | DX: Z51.81 Encounter for therapeutic drug level monitoring (principal); F11.20 Opioid dependence, uncomplicated; M51.37 Other intervertebral disc degeneration, lumbosacral region; M47.16 Other spondylosis with myelopathy, lumbar region; G89.4 Chronic pain syndrome | CPT/HCPCS: 99212 ==

== ENCOUNTER → 2023-08-28 13:08 | Outpatient (BNVA) | payer OTHER, SELFPAY | PROVIDERS: PCP Physician Assistant; Visit Provider Anesthesiology | DX: Z79.891 Long term (current) use of opiate analgesic (principal) | CPT/HCPCS: 99211 ==

== ENCOUNTER 2023-10-21 15:04 | Outpatient (AMB) | payer OTHER, SELFPAY ==
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
[2023-10-21 15:12] VITALS: BP 136/78; PULSE 110; RESP 16; O2SAT 98; BMI 25.7
== END 2023-10-21 15:24 | disposition home or self-care (01) ==
PROVIDERS: PCP Physician Assistant; Visit Provider Anesthesiology
DX: M51.37 Other intervertebral disc degeneration, lumbosacral region (principal); G89.4 Chronic pain syndrome; M47.16 Other spondylosis with myelopathy, lumbar region; M47.816 Spondylosis without myelopathy or radiculopathy, lumbar region
CPT/HCPCS: 99213

== ENCOUNTER → 2023-10-21 15:04 | Outpatient (BNVA) | payer OTHER, SELFPAY | PROVIDERS: PCP Physician Assistant; Visit Provider Anesthesiology | DX: M51.37 Other intervertebral disc degeneration, lumbosacral region (principal); M47.16 Other spondylosis with myelopathy, lumbar region; M47.816 Spondylosis without myelopathy or radiculopathy, lumbar region; G89.4 Chronic pain syndrome | CPT/HCPCS: 99212 ==

== ENCOUNTER 2024-01-07 10:15 | Outpatient (AMB) | payer OTHER, SELFPAY ==
[2024-01-07 10:19] VITALS: BP 90/58; PULSE 77; RESP 16; O2SAT 98; BMI 25.4
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
== END 2024-01-07 10:52 | disposition home or self-care (01) ==
PROVIDERS: PCP Physician Assistant; Visit Provider Physician Assistant
DX: F90.1 Attention-deficit hyperactivity disorder, predominantly hyperactive type (principal); M51.9 Unspecified thoracic, thoracolumbar and lumbosacral intervertebral disc disorder; J45.31 Mild persistent asthma with (acute) exacerbation; F41.1 Generalized anxiety disorder
CPT/HCPCS: 99214

== ENCOUNTER 2024-08-20 14:36 | Outpatient (AMB) | payer OTHER, SELFPAY ==
[2024-08-20 14:47] VITALS: BP 112/74; PULSE 70; O2SAT 99; BMI 28.1
--- NOTE | 2024-08-20 14:47 | MHC.PC.OV ---
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 Accompanied by: Self / Same As Patient Allergies shellfish derived [SHELLFISH DERIVED] Allergy (Unknown, Verified 08/20/24 14:49) ANAPHYLAXIS gabapentin Adverse Reaction (Unknown, Verified 08/20/24 14:49) dizziness ibuprofen [IBUPROFEN] Adverse Reaction (Unknown, Verified 08/20/24 14:49) UPSET STOMACH, headache naproxen [NAPROXEN] Adverse Reaction (Unknown, Verified 08/20/24 14:49) DIZZINESS, UPSET STOMACH, headache Medication List - Last Reconciled 08/20/24 by Max Osuna PA-C albuterol sulfate 90 mcg/actuation (Ventolin HFA) 2 puffs inhalation Q4-6H PRN 90 days hfrbkprupm-zoxabnufnvxjp-zpvv 50-325-40 mg 1 tab PO Q6H PRN dextroamphetamine-amphetamine 30 mg ER (Adderall XR) 30 mg PO DAILY 28 days diclofenac sodium 1% 2 grams topical TID fluticasone propion-salmeterol 230-21 mcg/actuation (Advair HFA) 2 puffs inhalation BID 90 days Tobacco use date assessed: 08/20/24 Dental Screening Dental Screen Date: 08/20/24 Did you have a dental visit in the last 12 months?: Yes Did you have a dental problem in the last 6 months where you did not have access to dental care?: No Was dental information given to patient?: Patient has dentist HPI Annual Exam HPI Details Patient is a 29-year-old male here today for a routine annual physical. Patient has a past medical history significant for lumbar disc disease, ADHD, asthma, migraines. .. Lumbar disc disease: Was followed by [facility] pain management, has apparently failed to produce pills at pill count and has been discontinued from opiate therapy. He does report being in a fair bit of chronic lumbar spine pain. He is interested a 2nd opinion through her pain management clinic at [facility]. .. ADHD : Was seeing a Paint Technician and was being prescribed adderal though has lost his follow-up with Psychiatry. He does have a counselor now to which he speaks with a weekly basis in his on waiting list to see a psychiatrist. Has a sign drug contract for use stimulant ADHD medication. .. Asthma: Has been fairly well controlled though does report having some exacerbations in his asthma during changes of seasons and in ginny environments. Has not had any access to his maintenance inhaler and a while due to [place] sure it is coverage. Does use an albuterol inhaler on a p.r.n. basis. Vaccines: Up-to-date with tetanus vaccine and COVID [facility] Medical History (Updated 08/20/24 @ 15:05 by Max Osuna PA-C) Cervicalgia Spondylosis of lumbosacral region Chronic pain syndrome Degeneration of lumbosacral intervertebral disc Arthritis Anxiety Surgical History History of lung surgery Family History Father Cancer Mother Mental health disorder Social History Housing: Apartment Alcohol intake: never Patient Tobacco Use Status: Never used Tobacco e-Cigarette/Vaping Use: Never Used Second Hand Smoke Exposure: No service: No Current occupational status: disabled Cognitive needs: Yes (cane) Hearing needs: No Vision needs: No Questionnaire Thrive Questionnaire Date Thrive assessed: 01/07/24 ANN-7 AMB Questionnaire ANN-7 Date ANN - 7 assessed: 01/07/24 Source: Developed by Drs. Jacques Cesar, Aubree Carrasquillo, Cricket Napoles and colleagues, with an educational yamilex from [employer]. ACT Questionnaire In the past 4 weeks, how much of the time did your asthma keep you from getting as much done at work, school or at home?: None of the time During the past 4 weeks, how often have you had shortness of breath?: Not at all During the past 4 weeks, how often did your asthma symptoms wake you up at night or earlier than usual in the morning?: Not at all During the past 4 weeks, how often have you had to use your rescue inhaler or nebulizer medication?: Not at all How would you rate your asthma control during the past 4 weeks?: Completely controlled ACT Interpretation: Negative Score: 25 Review of Systems Const Denies body aches, Denies chills, Denies excessive sweating, Denies fatigue, Denies fever(s) and Denies headache(s) Eyes Denies blurry vision ENT Denies dysphagia, Denies vertigo, Denies dizziness, Denies headache(s), Denies hearing loss and Denies tinnitus Card Denies chest pain, Denies chest pain with activity, Denies syncope, Denies irregular heart rhythm and Denies dyspnea Resp Denies chest congestion, Denies cough, Denies hemoptysis, Denies dyspnea and Denies wheezing GI Denies abdominal pain, Denies melena, Denies hematochezia, Denies coffee ground emesis, Denies dysphagia, Denies diarrhea, Denies nausea and Denies vomiting Denies difficulty urinating, Denies dysuria, Denies urinary frequency, Denies urinary hesitancy and Denies urinary urgency Musc Denies arthralgias, Denies limited range of motion, Denies muscle cramps and Denies muscle weakness Skin/Breast Denies rash and Denies skin ulcer Neuro Denies Abnormal speech present, Denies confusion, Denies vertigo, Denies dizziness, Denies syncope, Denies headache(s), Denies memory loss and Denies seizure-like activity Psych Denies anxiety, Denies confusion, Denies depression, Denies memory loss, Denies panic attacks and Denies paranoia Endo Denies excessive sweating, Denies fatigue, Denies flushing, Denies polydipsia and Denies polyuria Aller/Immun Denies wheezing Physical exam (Primary Care) Vital Signs: Last Vital Signs Pulse 70 08/20/24 14:47 BP 112/74 08/20/24 14:47 Pulse Ox 99 08/20/24 14:47 Oxygen Delivery Method Room Air 08/20/24 14:47 BMI result Body Mass Index 28.1 Tobacco/Smoking Status: Tobacco use Status Tobacco use date assessed 01/07/24 08/20/24 14:47 Patient Tobacco Use Status Never used Tobacco 08/20/24 14:47 e-Cigarette/Vaping Use Never Used 08/20/24 14:47 Thrive Assessment: Date of Thrive Assessment Date Thrive assessed 01/07/24 08/20/24 14:47 Const General: cooperative, comfortable, no acute distress, alert and awake; No confusion Orientation/consciousness: oriented to person, oriented to place, patient oriented x3 and No confusion HENCA Head: Yes normocephalic Ears: external ears normal and TM's normal bilaterally Face and sinus: No sinus tenderness Mouth: Normal oral and palatal mucosa present and tongue normal Teeth and gingiva: dentition normal and gingiva normal Throat: Yes posterior oropharynx normal, Yes tonsils normal and Yes uvula midline Eyes Conjunctivae: conjunctivae normal Sclerae: sclerae normal Pupils: Equal, round and reactive pupils present EOM: EOMs intact bilaterally Direct Ophthalmoscopy: No no photophobia Neck Neck: Yes no lymphadenopathy, No tender and Yes no JVD Thyroid: Thyroid normal Carotids: no bruits Chest Chest palpation & inspection: no tenderness Resp Effort & Inspection: normal respiratory effort, no audible wheezes, not labored and no stridor Auscultation: no crackles, no rales, no rhonchi and no wheezes Cardio Jugular venous distension: no JVD Rate: regular rate, not bradycardic and not tachycardic Rhythm: regular rhythm Bruits: no carotid bruits Peripheral pulses: Peripheral pulses 2+ throughout GI Inspection: Yes normal to inspection, No abdominal wall ecchymosis and No visible herniation Palpation (GI): Soft to palpation, nontender, no guarding, not rigid and No hepatosplenomegaly present Auscultation: normoactive bowel sounds General: Yes no CVA tenderness Back/Spine/Pelvis Back: no CVA tenderness and No back tenderness Cervical Spine: cervical ROM normal Thoracic/Lumbar Spine: thoracic and lumbar spine normal to inspection, straight leg raise negative bilaterally, No thoraco-lumbar ROM limited and No lumbar spinal tenderness Skin Lesions: no lesions Rashes: no rashes Wounds: no wounds Neuro General: oriented to person, oriented to place, patient oriented x3, CN's II-XI intact bilaterally and No confusion Cranial nerves: Yes Equal, round and reactive pupils present and Yes Normal accommodation reflex present Cognition (Neuro): normal cognition Speech: No Abnormal speech present Gait exam (Neuro): Normal gait present Motor exam (neuro): 5/5 motor strength present throughout Extrem Right upper extremity: full ROM; no cyanosis Left upper extremity: full ROM; no cyanosis Right lower extremity: no edema Left lower extremity: no edema Psych Appearance: grossly normal Mental Status: mental status grossly normal Affect: normal affect Attitude: cooperative Thought process: Normal thought process present Office Procedures Flu Questionnaire Does the patient have a severe egg allergy?: No Does the patient have severe life threatening allergies?: No Does the patient have a fever or illness today?: No Has the patient ever had Guillain-[place] Syndrome?: No Has the patient ever had any past reaction to a flu shot?: No Immunizations Fluarix Triv [id number] (PF) 45 mcg (15 mcg x 3)/0.5 mL IM syringe Performing Provider: Max Osuna PA-C [facility] Documented (not given) by: DORINDA Veloz on 08/20/24 14:49 Reason Not Given: Patient Refused Coding Level of Care Code Est Pt Prev Care 18-39y(29326) Diagnoses Annual physical exam Z00.00 Attention deficit hyperactivity disorder (ADHD), predominantly hyperactive type F90.1 Attention deficit-hyperactivity disorder type: predominantly hyperactive Lumbar disc disease M51.9 Screening for diabetes mellitus (DM) Z13.1 Mild persistent asthma with acute exacerbation J45.31 Asthma severity: mild Asthma persistence: persistent Asthma complication type: with acute exacerbation Additional Codes Asthma Control Questionnaire - ACT Interpretation: Negative ([id number]) Assessment & Plan Assessment & Plan (1) Annual physical exam: Code(s): Z00.00 - Encounter for general adult medical examination without abnormal findings Category: Medical Plan: As per HPI (2) ADHD: Code(s): F90.9 - Attention-deficit hyperactivity disorder, unspecified type Category: Medical Qualifiers: Attention deficit-hyperactivity disorder type: predominantly hyperactive Qualified Code(s): F90.1 - Attention-deficit hyperactivity disorder, predominantly hyperactive type Plan: As per HPI patient now waiting list to see a psychiatrist. I as his primary care has been handling his ADHD stimulant medication. He is seems to be doing well though is not in school or working at this time. (3) Lumbar disc disease: Code(s): M51.9 - Unspecified thoracic, thoracolumbar and lumbosacral intervertebral disc disorder Category: Medical Plan: Has a long history of lumbar disc disease and chronic pain. Was seen by her pain management in the past and is getting injections, opiate pain medication and therapy which together were all working on reducing his pain. Had been discharged from pain management. He would like a 2nd opinion at a different pain management clinic for pain reduction modality. (4) Screening for diabetes mellitus (DM): Code(s): Z13.1 - Encounter for screening for diabetes mellitus Category: Medical Plan: As per HPI (5) Asthma: Code(s): J45.909 - Unspecified asthma, uncomplicated Category: Medical Qualifiers: Asthma severity: mild Asthma persistence: persistent Asthma complication type: with acute exacerbation Qualified Code(s): J45.31 - Mild persistent asthma with (acute) exacerbation Plan: Patient reports his asthma has been well controlled with only p.r.n. use of his albuterol inhaler. He denies any nighttime awakenings with asthma symptoms or recent asthma exacerbations. Orders: Orders Influenza [id number] Immunization Today Z23 - Encounter for immunization Comprehensive [place]. Panel Fast Today Z13.1 - Encounter for screening for diabetes mellitus Complete Blood Count no Diff Today D50.9 - Iron deficiency anemia, unspecified Referrals Pain Management Referral M47.816 - Spondylosis without myelopathy or radiculopathy, lumbar region Medications: Refilled fluticasone propion-salmeterol 230-21 mcg/actuation (Advair HFA) 2 puffs inhalation BID 90 days 3 inhalers 2RF J45.31 - Mild persistent asthma with (acute) exacerbation
== END 2024-08-20 15:00 | disposition home or self-care (01) ==
PROVIDERS: PCP Physician Assistant; Visit Provider Physician Assistant
DX: Z00.00 Encounter for general adult medical examination without abnormal findings (principal); F90.1 Attention-deficit hyperactivity disorder, predominantly hyperactive type; M51.9 Unspecified thoracic, thoracolumbar and lumbosacral intervertebral disc disorder; Z13.1 Encounter for screening for diabetes mellitus; J45.31 Mild persistent asthma with (acute) exacerbation; Z23 Encounter for immunization

== ENCOUNTER → 2024-08-20 14:36 | Outpatient (BNVA) | payer OTHER, SELFPAY | PROVIDERS: PCP Physician Assistant; Visit Provider Physician Assistant | DX: Z00.00 Encounter for general adult medical examination without abnormal findings (principal); F90.1 Attention-deficit hyperactivity disorder, predominantly hyperactive type; M51.9 Unspecified thoracic, thoracolumbar and lumbosacral intervertebral disc disorder; J45.31 Mild persistent asthma with (acute) exacerbation | CPT/HCPCS: 90471; 96160; 99395 ==

== ENCOUNTER 2024-10-12 15:32 | Outpatient (AMB) | payer OTHER, SELFPAY ==
[2024-10-12 16:04] VITALS: BP 120/70; PULSE 86; O2SAT 98
--- NOTE | 2024-10-12 16:04 | AM.OFFWIN_ITS ---
Intake Vital Signs 10/12/24 16:04 Weight 181 lb BP 120/70 Blood Pressure Location Rt brachial Position Sitting Pulse 86 Pulse Source Pulse Oximeter Pulse Oximetry (%) 98 Oxygen Delivery Method Room Air Intake Visit Reasons: EP Neck Pain can't move it Intake Note: Patient here for neck pain, ROM is limited but started 3 days ago. Patient Tobacco Use Status: Never used Tobacco Allergies shellfish derived [SHELLFISH DERIVED] Allergy (Unknown, Verified 10/12/24 16:56) ANAPHYLAXIS gabapentin Adverse Reaction (Unknown, Verified 10/12/24 16:56) dizziness ibuprofen [IBUPROFEN] Adverse Reaction (Unknown, Verified 10/12/24 16:56) UPSET STOMACH, headache naproxen [NAPROXEN] Adverse Reaction (Unknown, Verified 10/12/24 16:56) DIZZINESS, UPSET STOMACH, headache Medication List - Last Reconciled 10/12/24 by Nellie Jorgensen PA-C albuterol sulfate 90 mcg/actuation (Ventolin HFA) 2 puffs inhalation Q4-6H PRN 90 days srsserqvnm-gvrfnyemuaufm-vlwv 50-325-40 mg 1 tab PO Q6H PRN cyclobenzaprine 10 mg PO Q8H dextroamphetamine-amphetamine 30 mg ER (Adderall XR) 30 mg PO DAILY 28 days diclofenac sodium 1% 2 grams topical TID fluticasone propion-salmeterol 230-21 mcg/actuation (Advair HFA) 2 puffs inhalation BID 90 days lidocaine 5% (Lidoderm) 1 patch topical DAILY naproxen 500 mg PO BID prednisone 40 mg (2 x 20 mg) PO DAILY 5 days HPI HPI Comments History of Present Illness Details The patient is a 29-year-old male presenting with musculoskeletal pain in the neck and shoulder region. The patient reports the onset of the symptoms was approximately three days prior to the visit, stating he woke up with a stiff neck and has since experienced worsening pain when turning his head or moving his arms. The pain appears to originate from the neck and extend downwards, possibly involving the left scapula. The patient describes the pain as pulling in nature. He denies any known injury, falls, or incidents that could have precipitated the condition but mentions working for [employer], which may involve lifting. He denies any fevers, rashes, recent falls or trauma, chest pain or shortness of breath, numbness, tingling, or fever associated with the condition. Occasionally, he experiences headaches. The pain has been severe enough to cause emotional distress. - Employment: Works for [employer], which elisabeth y involve physical activity and lifting. - Work status: Has been off work for the last three days due to pain. [facility] Medical History Cervicalgia Spondylosis of lumbosacral region Chronic pain syndrome Degeneration of lumbosacral intervertebral disc Arthritis Anxiety Surgical History History of lung surgery Family History Father Cancer Mother Mental health disorder Social History Housing: Apartment Alcohol intake: never Patient Tobacco Use Status: Never used Tobacco e-Cigarette/Vaping Use: Never Used Second Hand Smoke Exposure: No service: No Current occupational status: disabled Cognitive needs: Yes (cane) Hearing needs: No Vision needs: No Review of Systems Const Details: - Neurological: Reports occasional headaches. - General: Denies fever. - Musculoskeletal: Reports neck stiffness and pain radiating to the shoulder. Physical Exam Vital Signs: Last Vital Signs Pulse 86 10/12/24 16:04 BP 120/70 10/12/24 16:04 Pulse Ox 98 10/12/24 16:04 Oxygen Delivery Method Room Air 10/12/24 16:04 Const Other: Appearance: Alert. Oriented X3. No acute distress, but appears to be in pain. Head: Normal external exam. Normocephalic. Atraumatic. Eyes: Pupils are equal, round, and reactive to light. Extraocular movements intact. Conjunctiva and sclera normal. Eyelids normal. Ears: External auditory canal normal. Tympanic membranes normal. Throat: Pharynx normal. Uvula midline. Moist mucous membranes. No trismus noted. No drooling noted. No muffled voice noted. Neck: Normal inspection. Neck supple but reports stiffness and pain in the left neck area. Delirium range of motion due to spasm of left paracervical/left trapezius/scapula. No adenopathy. Thyroid Normal. No meningeal signs. No neck mass noted. Cardiovascular: Normal heart rate and rhythm. Respiratory: No respiratory distress. Painless inspiration. Back: Reports pain in the back of the neck and scapula area. Full range of motion noted but painful. Skin: Skin warm and dry. Normal skin color. Normal skin turgor. No rashes/lesions/lacerations noted. Extremities: Extremities exhibit normal range of motion. Extremities nontender, but reports pain when moving the shoulder. Neuro: Oriented X 3. No motor deficit. No sensory deficit. Reflexes normal. Assessment & Plan Assessment & Plan (1) Muscle spasm: Code(s): M62.838 - Other muscle spasm (2) Torticollis: Code(s): M43.6 - Torticollis Plan - Prescribe muscle relaxants for the muscle spasm. - Prescribe steroids to manage inflammation. - Prescribe lidocaine patches for localized pain relief. - Prescribe naproxen for pain management. - Issue a work note for the patient to take a few days off. - Discussed that x-rays would likely not be beneficial as they show bone structure rather than muscle-related issues. I discussed with the patient the diagnosis of acute musculoskeletal pain likely exacerbated by a muscle spasm in the neck and scapular region. We talked about the management with muscle relaxants, steroids, lidocaine patches, and naproxen to alleviate pain and inflammation. I explained that an x-ray would primarily show bone and not provide useful information for this muscle-related issue. The patient was advised to rest and was provided with a work note for time off to facilitate recovery. The benefits and uses of each medication, as well as potential side effects, were discussed. We also talked about follow-up actions if symptoms do not improve. Patient was informed and verbally consented to the use of an ambient scribe for clinic note documentation during this visit. Medications: New lidocaine 5% (Lidoderm) leave on most painful area for up to 12 hrs, then remove for 12 hours then replace after you have left off for 12 hours 1 patch topical DAILY 15 ea 0RF naproxen 500 mg PO BID 20 tabs 0RF inflammation prednisone 40 mg (2 x 20 mg) PO DAILY 5 days 10 tabs 0RF cyclobenzaprine 10 mg PO Q8H 20 tabs 0RF muscle spasm Patient Instructions: - Take muscle relaxants as prescribed to alleviate the spasm. - Use steroids as directed to reduce inflammation. - Apply lidocaine patches to the affected area to manage pain. - Take naproxen as advised for pain relief. - Rest and avoid strenuous activities for the next few days. - Return to work only after symptoms improve. - Watch for any worsening symptoms and contact me if necessary. Coding Level of Care Code Est Pt Level 3 (23017) Diagnoses Muscle spasm M62.838 Torticollis M43.6
== END 2024-10-12 16:41 | disposition home or self-care (01) ==
PROVIDERS: PCP Physician Assistant; Visit Provider Physician Assistant Medical
DX: M62.838 Other muscle spasm (principal); M43.6 Torticollis

== ENCOUNTER → 2024-10-12 15:32 | Outpatient (BNVA) | payer OTHER, SELFPAY | PROVIDERS: PCP Physician Assistant; Visit Provider Physician Assistant Medical | DX: M62.838 Other muscle spasm (principal); M43.6 Torticollis | CPT/HCPCS: 99212 ==

== ENCOUNTER 2024-11-23 14:56 | Outpatient (AMB) | payer OTHER, SELFPAY ==
--- NOTE | 2024-11-23 14:58 | MHC.PC.OV ---
Vital Signs 11/23/24 15:00 Height 5 ft 8 in Weight 179 lb BMI 27.2 BP 110/70 Blood Pressure Location Lt brachial Position Sitting Pulse 96 Pulse Source Pulse Oximeter Temp 97.3 F Temp Source Temporal Artery Scan Pulse Oximetry (%) 96 Oxygen Delivery Method Room Air Intake Visit Reasons: f/u ADHD Pet Feeder Required: No Accompanied by: Self / Same As Patient Allergies shellfish derived [SHELLFISH DERIVED] Allergy (Unknown, Verified 11/23/24 15:00) ANAPHYLAXIS gabapentin Adverse Reaction (Unknown, Verified 11/23/24 15:00) dizziness ibuprofen [IBUPROFEN] Adverse Reaction (Unknown, Verified 11/23/24 15:00) UPSET STOMACH, headache naproxen [NAPROXEN] Adverse Reaction (Unknown, Verified 11/23/24 15:00) DIZZINESS, UPSET STOMACH, headache Medication List - Last Reconciled 11/23/24 by Max Osuna PA-C albuterol sulfate 90 mcg/actuation (Ventolin HFA) 2 puffs inhalation Q4-6H PRN 90 days xdpqrrvbof-sijyhzxrojzql-yjel 50-325-40 mg 1 tab PO Q6H PRN cyclobenzaprine 10 mg PO Q8H dextroamphetamine-amphetamine 30 mg ER (Adderall XR) 30 mg PO DAILY 28 days diclofenac sodium 1% 2 grams topical TID fluticasone propion-salmeterol 230-21 mcg/actuation (Advair HFA) 2 puffs inhalation BID 90 days lidocaine 5% (Lidoderm) 1 patch topical DAILY naproxen 500 mg PO BID Tobacco use date assessed: 11/23/24 Dental Screening Dental Screen Date: 11/23/24 Did you have a dental visit in the last 12 months?: Yes Did you have a dental problem in the last 6 months where you did not have access to dental care?: No Was dental information given to patient?: Patient has dentist HPI f/u ADHD HPI Details Patient is a 29-year-old male here today for a follow-up visit Patient has a past medical history significant for lumbar disc disease, ADHD, asthma, migraines. .. Lumbar disc disease: The chronic low back pain worsened after starting full-time work with [employer], where he experienced a severe spasm requiring a walk-in clinic visit. The pain impeded his ability to work, leading to increased anxiety and depression. Muscle relaxants such as Flexeril and naproxen were ineffective, and gabapentin was previously tried with no benefit. He is willing to see pain management for pain reduction modality. For now will use lidocaine patches and naproxen for his pain. .. ADHD he is trying to reestablish care with psychiatry. For now I as his PCP has been managing his stimulant ADHD medication. He does have a counselor now to which he speaks with a weekly basis in his on waiting list to see a psychiatrist. He reports he is doing well with the current dose of Adderall on his attention and focus. No reported side effects Has a sign drug contract for use stimulant ADHD medication. .. Asthma: Has been fairly well controlled though does report having some exacerbations in his asthma during changes of seasons and in ginny environments. Does use an albuterol inhaler on a p.r.n. basis. [facility] Medical History (Updated 11/23/24 @ 15:27 by Max Osuna PA-C) Cervicalgia Spondylosis of lumbosacral region Chronic pain syndrome Degeneration of lumbosacral intervertebral disc Anxiety Surgical History History of lung surgery Family History Father Cancer Mother Mental health disorder Social History Housing: Apartment Alcohol intake: never Patient Tobacco Use Status: Never used Tobacco e-Cigarette/Vaping Use: Never Used Second Hand Smoke Exposure: No service: No Current occupational status: disabled Cognitive needs: Yes (cane) Hearing needs: No Vision needs: No Questionnaire PHQ-9 Over the last 2 weeks, how often have you been bothered by any of the following problems? 1. Little interest or pleasure in doing things: nearly every day 2. Feeling down, depressed, or hopeless: nearly every day 3. Trouble falling or staying asleep, or sleeping too much: nearly every day 4. Feeling tired or having little energy: nearly every day 5. Poor appetite or overeating: several days 6. Feeling bad about yourself - or that you are a failure or have let yourself or your family down: more than half the days 7. Trouble concentrating on things, such as reading the newspaper or watching television: nearly every day 8. Moving or speaking so slowly that other people could have noticed. Or the opposite - being so fidgety or restless that you have been moving around a lot more than usual: not at all 9. Thoughts that you would be better off or of hurting yourself in some way: not at all Total score: 18 Depression Screening Interpretation: Positive Depression Screening Follow-up: Existing condition and In treatment Depression Screening Done: Yes 31341 - PHQ-9 Billing: Yes Source: Developed by Drs. Jacques Cesar, Aubree Carrasquillo, Cricket Napoles and colleagues, with an educational yamilex from [employer]. Thrive Questionnaire Date Thrive assessed: 11/23/24 I am a: Patient What is your living situation today?: I have a steady place to live Within the past 12 months, did the food you bought not last and you didn't have the money to get more?: Never true Within the past 12 months, did you worry whether your food would run out before you got money to buy more?: Never true Do you have trouble paying for medicines?: No Do you have trouble getting transportation to medical appointments?: No Do you have trouble paying your heating and electricity bill?: No Do you have trouble taking care of your child, family member or friend?: No Do you have trouble with day-to-day activities such as bathing, preparing meals, shopping, managing finances, etc.?: No Are you currently unemployed and looking for a job?: No Are you interested in more education?: No Please select the resources that you would like help with: None Currently or been in a relationship where the following occur: No concerns reported THRIVE Score: 0 AUDIT C Alcohol Use Questionnaire (AUDIT-C) 1. How often do you have a drink containing alcohol?: Never 3. How often do you have six or more drinks on one occasion?: Never Total Score: 0 ANN-7 AMB Questionnaire ANN-7 Date ANN - 7 assessed: 11/23/24 Feeling nervous, anxious, or on edge: 3 = Nearly every day Not being able to stop or control worryin = Nearly every day Worrying too much about different things: 3 = Nearly every day Trouble relaxin = Nearly every day Being so restless that it is hard to sit still: 3 = Nearly every day Becoming easily annoyed or irritable: 2 = More than half the days Feeling afraid as if something awful might happen: 0 = Not at all Total ANN-7 score (0-4 normal; 5-9 mild; 10-14 moderate; 15-21 severe): 17 Source: Developed by Drs. Jacques Cesar, Aubree Carrasquillo, Cricket Napoles and colleagues, with an educational yamielx from [employer]. ANN-7 Assessment Billing ANN-7 Assessment Tool: ANN-7 Assessment 59691 Review of Systems Const Denies headache(s) Eyes Denies loss of vision ENT Denies vertigo, Denies dizziness, Denies headache(s) and Denies sore throat Card Denies chest pain, Denies leg edema and Denies lightheadedness Resp Denies cough, Denies hemoptysis and Denies wheezing GI Denies abdominal pain, Denies melena, Denies constipation, Denies diarrhea and Denies vomiting Denies dysuria, Denies urinary frequency and Denies urinary urgency Musc Denies arthralgias, Denies joint swelling, Denies numbness and Denies tingling Neuro Denies Abnormal speech present, Denies behavioral changes, Denies vertigo, Denies dizziness, Denies headache(s), Denies loss of vision, Denies memory loss, Denies numbness and Denies tingling Psych Denies anxiety, Denies behavioral changes, Denies depression, Denies memory loss and Denies panic attacks Chris/Lymph Denies easy bleeding and Denies easy bruising Aller/Immun Denies wheezing Physical exam (Primary Care) Vital Signs: Last Vital Signs Temp 97.3 F 11/23/24 15:00 Pulse 96 11/23/24 15:00 BP 110/70 11/23/24 15:00 Pulse Ox 96 11/23/24 15:00 Oxygen Delivery Method Room Air 11/23/24 15:00 BMI result Body Mass Index 27.2 Tobacco/Smoking Status: Tobacco use Status Tobacco use date assessed 11/23/24 11/23/24 15:07 Patient Tobacco Use Status Never used Tobacco 11/23/24 14:58 e-Cigarette/Vaping Use Never Used 11/23/24 14:58 PHQ-9: PHQ-9 Score PHQ-9: Total score 18 11/23/24 15:13 Depression Screening Interpretation: Positive Depression Screening Follow-up: Existing condition and In treatment Thrive Assessment: Date of Thrive Assessment Date Thrive assessed 11/23/24 11/23/24 15:07 Currently or been in a relationship where the following occur: No concerns reported Const General: healthy appearing, no acute distress, alert and awake Nutritional Appearance: well nourished Orientation/consciousness: oriented to person, oriented to place and oriented to time HENMT Ears: TM's normal bilaterally General nose exam: Normal nasal mucous membranes and turbinates present Eyes Conjunctivae: conjunctivae normal Sclerae: sclerae normal Pupils: Equal, round and reactive pupils present Neck Neck: Yes no lymphadenopathy and Yes no JVD Thyroid: Thyroid normal Carotids: no bruits Resp Effort & Inspection: normal respiratory effort and not tachypneic Auscultation: no crackles, no rales, no rhonchi and no wheezes Cardio Rate: regular rate Rhythm: regular rhythm Heart sounds: no murmurs and normal S1 and S2 GI Palpation (GI): Soft to palpation, nontender, no hepatomegaly and no splenomegaly Auscultation: normal bowel sounds Skin General skin exam: no rashes or lesions noted and dry skin Neuro General: oriented to person, oriented to place and oriented to time Cranial nerves: Yes Equal, round and reactive pupils present Speech: No Abnormal speech present Gait exam (Neuro): Normal gait present Motor exam (neuro): no tremor noted Extrem Right upper extremity: full ROM Left upper extremity: full ROM Right lower extremity: full ROM; no edema Left lower extremity: full ROM; no edema Psych Mental Status: mental status grossly normal Speech and movement: Normal speech and movement present Affect: normal affect Attitude: cooperative Thought process: Normal thought process present Office Procedures Flu Questionnaire Does the patient have a severe egg allergy?: No Does the patient have severe life threatening allergies?: No Does the patient have a fever or illness today?: No Has the patient ever had Guillain-[place] Syndrome?: No Has the patient ever had any past reaction to a flu shot?: No Immunizations Fluarix Triv 5176-3622 (PF) 45 mcg (15 mcg x 3)/0.5 mL IM syringe Performing Provider: Max Osuna PA-C [facility] Administered by: DORINDA Veloz on 11/23/24 15:26 Dose Route Admin Location Dispensed Lot Number Expiration Date [facility] Rail Assembler 0.5 mL IM Left Deltoid 0.5 mL [id number] 04/05/25 [id number] [employer] VIS Given Date VIS Provided VIS Publication Date 11/23/24 Single Vaccine 21 Eligibility Eligibility Date Funding Source Not [facility] Eligible 11/23/24 Private Coding Level of Care Code Est Pt Level 4 (53778) Diagnoses Attention deficit hyperactivity disorder (ADHD), predominantly hyperactive type F90.1 Attention deficit-hyperactivity disorder type: predominantly hyperactive Lumbar disc disease M51.9 Mild persistent asthma with acute exacerbation J45.31 Asthma severity: mild Asthma persistence: persistent Asthma complication type: with acute exacerbation ANN (generalized anxiety disorder) F41.1 Additional Codes ANN-7 Assessment Billing - ANN-7 Assessment Tool: ANN-7 Assessment 94358 ([id number]) PHQ-9 - 96107 - PHQ-9 Billing: Yes ([id number]) Assessment & Plan Assessment & Plan (1) ADHD: Code(s): F90.9 - Attention-deficit hyperactivity disorder, unspecified type Category: Medical Qualifiers: Attention deficit-hyperactivity disorder type: predominantly hyperactive Qualified Code(s): F90.1 - Attention-deficit hyperactivity disorder, predominantly hyperactive type Plan: As per HPI patient now waiting list to see a psychiatrist. I as his primary care has been handling his ADHD stimulant medication. He is seems to be doing well though is not in school or working at this time. 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 He is interested in seeing pain management again for pain reduction modality. Was not able to establish care with [facility] due to insurance reasons. Will refer to an alternative pain management clinic. (3) Asthma: Code(s): J45.909 - Unspecified asthma, uncomplicated Category: Medical Qualifiers: Asthma severity: mild Asthma persistence: persistent Asthma complication type: with acute exacerbation Qualified Code(s): J45.31 - Mild persistent asthma with (acute) exacerbation Plan: Patient reports his asthma has been well controlled with only p.r.n. use of his albuterol inhaler. He denies any nighttime awakenings with asthma symptoms or recent asthma exacerbations. (4) ANN (generalized anxiety disorder): Code(s): F41.1 - Generalized anxiety disorder Category: Medical Plan: Patient's ANN-7 score positive for anxiety which has been existing condition for him.. Patient reports his anxiety has been very bothersome as of late. He has still waiting to get set up with a psychiatrist. He was prescribed alprazolam many years ago for his anxiety which he does report being effective. We did discuss the habit-forming nature of benzodiazepines and he does understand. Willing to give short term low-dose script of alprazolam to use on a p.r.n. basis for severe anxiety and panic. Orders: Orders AMB 12 Panel Urine Drug Screen Today F90.1 - Attention-deficit hyperactivity disorder, predominantly hyperactive type, Z51.81 - Encounter for therapeutic drug level monitoring Referrals Pain Management Referral M47.816 - Spondylosis without myelopathy or radiculopathy, lumbar region Medications: Discontinued prednisone Discontinued Reason: Doctor's Order 40 mg (2 x 20 mg) PO DAILY 5 days 10 tabs 0RF cyclobenzaprine Discontinued Reason: Doctor's Order 10 mg PO Q8H 20 tabs 0RF muscle spasm
--- OUTSIDE RECORDS SUMMARY | 2024-11-23 14:59 | XMS_ITS | Clinical Summary ---
Author Organization [facility] ity Address [address] [place] [address] Care Team Providers Care Business Quality Assurance Analyst Name Role Phone Unavailable Primary Care Provider Unavailabl e Medical History Medical History Date Comments Asthma DX:Asthma Social History Tobacco Use Types Packs/Day Years Used Date Smoking Tobacco: Former Cigarettes S tarted: 06/17/2018 Smokeless Tobacco: Current Alcohol Use Standard Drinks/Week Comments Yes 0 (1 standard drink = 0.6 oz pur e alcohol) Sex and Gender Information Value Date Recorded Sex Assigned at Not on file Legal Sex Male 4:56 AM EST Gender Identity Not on file Sexual Orientation Not on file Obstetrics History Plan of Treatment Health Maintenance Due Date Last Done Comments Hepatitis B Vaccines (3 of 3 - 19+ 3-dose series) 09/08/2016 04/11/2016, 03/09/2016 COVID-19 Vaccine ( - 2023-2 5 season) 2024 Influenza Vaccine (#1) 2024 DTaP,Tdap,and Td Vaccines (2 - Td or Tdap) 02/09/2026 02/10/2016 HIB Vaccines Aged Out No longer eligi ble based on patient's age to complete this topic HPV Vaccines Aged Out No longer eligi ble based on patient's age to complete this topic Hepatitis A Vaccines Aged Out No long er eligible based on patient's age to complete this topic IPV Vaccines Aged Out No longer eligi ble based on patient's age to complete this topic MMR Vaccines Aged Out No longer eligi ble based on patient's age to complete this topic Meningococcal ACWY Vaccine Aged Out N o longer eligible based on patient's age to complete this topic Meningococcal B Vacine Aged Out No lo nger eligible based on patient's age to complete this topic Pneumococcal Vaccine: Pediatrics (0 to 5 Years) and At-Risk Patients (6 to 64 Years) Aged Out No longer eligible b ased on patient's age to complete this topic RSV Immunization Patients Under 20 months Aged Out No longer eligible b ased on patient's age to complete this topic Varicella Vaccines Aged Out No longer eligible based on patient's age to complete this topic
[2024-11-23 15:00] VITALS: BP 110/70; PULSE 96; TEMP 36.3; O2SAT 96; BMI 27.2
== END 2024-11-23 15:26 | disposition home or self-care (01) ==
PROVIDERS: PCP Physician Assistant; Visit Provider Physician Assistant
DX: F90.1 Attention-deficit hyperactivity disorder, predominantly hyperactive type (principal); M51.9 Unspecified thoracic, thoracolumbar and lumbosacral intervertebral disc disorder; J45.31 Mild persistent asthma with (acute) exacerbation; F41.1 Generalized anxiety disorder; Z23 Encounter for immunization

== ENCOUNTER → 2024-11-23 14:56 | Outpatient (BNVA) | payer OTHER, SELFPAY | PROVIDERS: PCP Physician Assistant; Visit Provider Physician Assistant | DX: Z23 Encounter for immunization (principal); F90.1 Attention-deficit hyperactivity disorder, predominantly hyperactive type; M51.9 Unspecified thoracic, thoracolumbar and lumbosacral intervertebral disc disorder; J45.31 Mild persistent asthma with (acute) exacerbation; F41.1 Generalized anxiety disorder | CPT/HCPCS: 90471; 90656; 96127; 99212 ==

== ENCOUNTER 2025-02-24 15:46 | Outpatient (AMB) | payer OTHER, SELFPAY ==
--- OUTSIDE RECORDS SUMMARY | 2025-02-24 15:49 | XMS_ITS | Encounter Summary ---
Author Organization [facility] Address [address] [place] [address] Care Team Providers Care Trouble Shooter Name Role Phone Greg Rodriguez MD Primary Care Provider [phone] [facility], Pcp Primary Care Provider Unavailabl e Reason for Visit * Reason Onset Date Comments Injury, Workmans Comp 02/27/2019 Encounter Details Date Type Department Care Team Description 02/27/2019 Telephone Adult Medicine [address] [phone] Greg Rodriguez MD [address] [place] [address] [phone] Injury, Workmans Comp Social History Tobacco Use Types Packs/Day Years Used Date Smoking Tobacco: Former Cigarettes S tarted: 06/17/2018 Smokeless Tobacco: Current Comments:social smoker on weekends Alcohol Use Standard Drinks/Week Comments Yes 0 (1 standard drink = 0.6 oz pur e alcohol) soc Sex Assigned at Date Recorded Not on file documented as of this encounter Miscellaneous Notes * Telephone Encounter - Tea Apodaca - 03/04/2019 1:15 PM EDT Still waiting for this letter , I looked in the east and west depts, and checked with Dr. Rodriguez's nurse, could not find this denial letter from . I called Theron who works in billing dept. He is going to call the insurance and ask them for a copy of this letter. He will get back to me. [phone] * Telephone Encounter - Mirna Lockett R.N. - 02/27/2019 1:07 PM EDT Did this letter come in * Telephone Encounter - Tiffany Marcellus - 02/27/2019 12:30 PM EDT Patient states he is following up on a matter from the other day. States he faxed over a worker comp denial letter and wants to know if it was received and what next step will be. Patient states he is in a lot of pain and is looking to be see by pain management jean pierre. Please see message from 02/17 documented in this encounter Plan of Treatment Not on file documented as of this encounter Visit Diagnoses Not on filedocumented in this encounter Care Teams Trouble Shooter Relationship Specialty Start Date End Date Greg Rodriguez MD [address] [place] [phone] PCP - General Internal Medicine 02/29/16 03/19/19 [facility] [address] [id number] PCP - General Internal Medicine 03/20/19 documented as of this encounter
--- OUTSIDE RECORDS SUMMARY | 2025-02-24 15:49 | XMS_ITS | Encounter Summary ---
Author Organization [facility] Address [address] [place] [address] Care Team Providers Care Pari Mutual Ticket Checker Name Role Phone Greg Rodriguez MD Primary Care Provider [phone] [facility], Pcp Primary Care Provider Unavailabl e Encounter Details Date Type Department Care Team Description 04/18/2017 Release of Information Medical Records [address] [place], [place] [id number] Abstract, Provider Social History Tobacco Use Types Packs/Day Years Used Date Smoking Tobacco: Former Alcohol Use Standard Drinks/Week Comments Not Asked 0 (1 standard drink = 0.6 oz pur e alcohol) Sex Assigned at Date Recorded Not on file documented as of this encounter Plan of Treatment Not on file documented as of this encounter Visit Diagnoses Not on filedocumented in this encounter Care Teams Pari Mutual Ticket Checker Relationship Specialty Start Date End Date Greg Rodriguez MD [address] [place] [address] [phone] PCP - General Internal Medicine 02/29/16 03/19/19 [facility], Pcp [address] [place] [id number] PCP - General Internal Medicine 03/20/19 documented as of this encounter
--- OUTSIDE RECORDS SUMMARY | 2025-02-24 15:49 | XMS_ITS | Encounter Summary ---
Author Organization [facility] Address [address] [place] [address] Care Team Providers Care Marketing Project Lead Name Role Phone Greg Rodriguez MD Primary Care Provider [facility], Pcp Primary Care Provider Unavailabl e Encounter Details Date Type Department Care Team Description 07/01/2017 Heater Engineer Helper Report Medical Records [address] [place] [phone] Delvin Rivera, PADaljitC Social History Tobacco Use Types Packs/Day Years Used Date Smoking Tobacco: Former Alcohol Use Standard Drinks/Week Comments Not Asked 0 (1 standard drink = 0.6 oz pur e alcohol) Sex Assigned at Date Recorded Not on file documented as of this encounter Plan of Treatment Not on file documented as of this encounter Visit Diagnoses Not on filedocumented in this encounter Care Teams Marketing Project Lead Relationship Specialty Start Date End Date Greg Rodriguez MD [address] [place] [address] [phone] PCP - General Internal Medicine 02/29/16 03/19/19 [facility], Pcp [address] [place] [phone] PCP - General Internal Medicine 03/20/19 documented as of this encounter
--- OUTSIDE RECORDS SUMMARY | 2025-02-24 15:49 | XMS_ITS | Clinical Summary ---
Author Organization [facility] ity Address [address] [place] [address] Care Team Providers Care Baggage Security Checker Name Role Phone Unavailable Primary Care Provider [...] 3-dose series) 09/08/2016 04/11/2016, 03/09/2016 COVID-19 Vaccine (2023-2 5 season) 2024 Influenza Vaccine (Season Ended) 2025 DTaP,Tdap,and Td Vaccines (2 - Td or [...] age to complete this topic Meningococcal B Vaccine Aged Out No l onger eligible based on patient's age to complete [...]
--- OUTSIDE RECORDS SUMMARY | 2025-02-24 15:49 | XMS_ITS | Encounter Summary ---
Author Organization [facility] Address [address] [place] [address] Care Team Providers Care Hot Wire Glass Tube Cutter Name Role Phone Greg Rodriguez MD Primary Care Provider [phone] [facility], Pcp Primary Care Provider Unavailabl e Reason for Visit * Reason Onset Date Comments Catalogue Compiler Feedback 04/14/2018 neuropsych testi ng Encounter Details Date Type Department Care Team Description 04/14/2018 Telephone Adult Medicine [facility] [address] [place] [address] [phone] Greg Rodriguez MD [address] [place] [address] [phone] Catalogue Compiler Feedback (neuropsych testing) Social History Tobacco Use Types Packs/Day Years Used Date Smoking Tobacco: Some Days Smokeless Tobacco: Current Comments:social smoker on e weekends Alcohol Use Standard Drinks/Week Comments Not Asked 0 (1 standard drink = 0.6 oz pur e alcohol) Sex Assigned at Date Recorded Not on file documented as of this encounter Miscellaneous Notes * Telephone Encounter - Jose Mendez NP - 04/14/2018 12:35 PM EDT Noted. Will have staff f/u with pt * Telephone Encounter - Sandhya Narvaez - 04/14/2018 10:29 AM EDT Jose, ?? I mailed the patient a release of information over 30 days ago and have not gotten a response. Unfortunately due to sensitive information I am unable to book the patient at any facility. Please have clinical staff reach out to patient. ?? Thank you Sandhya Referrals Coordinator documented in this encounter Plan of Treatment Not on file documented as of this encounter Visit Diagnoses Not on filedocumented in this encounter Care Teams Hot Wire Glass Tube Cutter Relationship Specialty Start Date End Date Greg Rodriguez MD [address] [place] [phone] PCP - General Internal Medicine 02/29/16 03/19/[address] [phone] PCP - General Internal Medicine 03/20/19 documented as of this encounter
--- OUTSIDE RECORDS SUMMARY | 2025-02-24 15:49 | XMS_ITS | Encounter Summary ---
Author Organization [facility] Address [address] [place] [address] Care Team Providers Care Diamond Merchant Name Role Phone Community, Pcp Primary Care Provider Unavailabl e Encounter Details Date Type Department Care Team Description 08/12/2019 Release of Information Medical Records [address] [place] [address] [id number] Abstract, Provider Social History Tobacco Use Types Packs/Day Years Used Date Smoking Tobacco: Former Cigarettes S tarted: 06/17/2018 Smokeless Tobacco: Current Comments:social smoker on e weekends Alcohol Use Standard Drinks/Week Comments Yes 0 (1 standard drink = 0.6 oz pur e alcohol) soc Sex Assigned at Date Recorded Not on file documented as of this encounter Plan of Treatment Not on file documented as of this encounter Visit Diagnoses Not on filedocumented in this encounter Care Teams Diamond Merchant Relationship Specialty Start Date End Date Community, Pcp PCP - General Internal Medicine 03/20/19 documented as of this encounter
--- OUTSIDE RECORDS SUMMARY | 2025-02-24 15:49 | XMS_ITS | Encounter Summary ---
Author Organization [facility] Address [address] [place] [address] Care Team Providers Care Behavioral Health Worker Name Role Phone Community, Pcp Primary Care Provider Unavailabl e Encounter Details Date Type Department Care Team Description 11/25/2019 Release of Information Medical Records [address] [place] [address] Abstract, Provider Social History Tobacco Use Types [...] on filedocumented in this encounter Care Teams Behavioral Health Worker Relationship Specialty Start Date End Date Community, Pcp PCP - General Internal Medicine 03/20/19 documented as of this encounter
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
--- OUTSIDE RECORDS SUMMARY | 2025-02-24 15:49 | XMS_ITS | Encounter Summary ---
Author Organization [facility] Address [address] [place] [address] Care Team Providers Care Block Sorter Name Role Phone Greg Rodriguez MD Primary Care Provider [phone] [facility], Pcp Primary Care Provider Jacques Dean MD Primary Care Provider Greg Doran MD Primary Care Provider [phone] [facility], Pcp Primary Care Provider Candy arteaga Encounter Details Date Type Department Care Team Description 01/05/2016 Release of Information Medical Records [address] [place] [address] 74[address] Abstract, Provider Social History Tobacco Use Types Packs/Day Years Used Date Smoking Tobacco: Never Assessed Sex Assigned at Date Recorded Not on file documented as of this encounter Plan of Treatment Not on file documented as of this encounter Visit Diagnoses Not on filedocumented in this encounter Care Teams Block Sorter Relationship Specialty Start Date End Date Greg Rodriguez MD [address] [place] [address] [phone] PCP - General Internal Medicine 01/04/16 02/12/16 [facility], Pcp [address] [place] [address] [phone] PCP - General Internal Medicine 02/13/16 02/15/16 Jacques Bear MD [address] [place] [address] [id number] PCP - General Oncology/Hematology 02/16/16 02/28/16 Greg Rodriguez MD [address] [place] [address] [phone] PCP - General Internal Medicine 02/29/16 03/19/19 [facility], Pcp [address] [place] [address] PCP - General Internal Medicine 03/20/19 documented as of this encounter
--- OUTSIDE RECORDS SUMMARY | 2025-02-24 15:49 | XMS_ITS | Encounter Summary ---
Author Organization [facility] Address [address] [place] [address] Care Team Providers Care Apparatus Lineman Name Role Phone Community, Pcp Primary Care Provider Jacques Dean MD Primary Care Provider Greg Doran MD Primary Care Provider [phone] [facility], Pcp Primary Care Provider Candy arteaga Encounter Details Date Type Department Care Team Description 02/13/2016 Release of Information Medical Records [address] [place] [address] 477[address] Abstract, Provider Social History Tobacco Use Types [...] on filedocumented in this encounter Care Teams Apparatus Lineman Relationship Specialty Start Date End Date Community, Pcp PCP - General Internal Medicine 02/13/16 02/15/16 Jacques Bear MD PCP - General Oncology/Hematology 02/16/16 02/28/16 Greg Rodriguez MD [address] [place] [address] [phone] PCP - General Internal Medicine 02/29/16 03/19/19 Community, Pcp PCP - General Internal Medicine 03/20/19 documented as of this encounter
--- OUTSIDE RECORDS SUMMARY | 2025-02-24 15:49 | XMS_ITS | Encounter Summary ---
Author Organization [facility] Address [address] [place] [address] Care Team Providers Care Environmental Compliance Technician Name Role Phone Greg Rodriguez MD Primary Care Provider [phone] [facility], Pcp Primary Care Provider Unavailabl e Reason for Visit * Reason Onset Date Comments Note, Work 10/11/2017 extension ? Encounter Details Date Type Department Care Team Description 10/11/2017 Telephone Adult Medicine [address] [phone] Greg Rodriguez MD [address] [place] [address] [phone] Note, Work (extension ?) Social History Tobacco Use Types Packs/Day Years Used Date Smoking Tobacco: Former Alcohol Use Standard Drinks/Week Comments Not Asked 0 (1 standard drink = 0.6 oz pur e alcohol) Sex Assigned at Date Recorded Not on file documented as of this encounter Miscellaneous Notes * Telephone Encounter - Tea Apodaca - 10/11/2017 4:30 PM EST See message sent to you please from patient services. documented in this encounter Plan of Treatment Not on file documented as of this encounter Visit Diagnoses Not on filedocumented in this encounter Care Teams Environmental Compliance Technician Relationship Specialty Start Date End Date Greg Rodriguez MD [address] [place] [phone] PCP - General Internal Medicine 02/29/16 03/19/19 [facility], Pcp [address] [place] [address] PCP - General Internal Medicine 03/20/19 documented as of this encounter
--- OUTSIDE RECORDS SUMMARY | 2025-02-24 15:49 | XMS_ITS | Encounter Summary ---
Author Organization [facility] Address [address] [place] [address] Care Team Providers Care Ammonia Operator Name Role Phone Greg Rodriguez MD Primary Care Provider [phone] [facility], Pcp Primary Care Provider Unavailabl e Encounter Details Date Type Department Care Team Description 12/04/2018 Release of Information Medical Records [address] [place] [address] 296[address] Abstract, Provider Social History Tobacco Use Types [...] on filedocumented in this encounter Care Teams Ammonia Operator Relationship Specialty Start Date End Date Greg Rodriguez MD [address] [place] [address] 1959[address] PCP - General Internal Medicine 02/29/16 03/19/19 [facility], Pcp [address] [place] [address] [phone] PCP - General Internal Medicine 03/20/19 documented as of this encounter
--- OUTSIDE RECORDS SUMMARY | 2025-02-24 15:49 | XMS_ITS | Encounter Summary ---
Author Organization [facility] Address [address] [place] [address] Care Team Providers Care Manager Transition Name Role Phone Greg Rodriguez MD Primary Care Provider [phone] [facility], Pcp Primary Care Provider Unavailabl e Reason for Referral * EXTERNAL (Urgent) - Authorized/Booked Specialty Diagnoses / Procedures Referred By Martita friedman Referred To Contact Physical Therapy Procedures REFERRAL TO PHYSICAL THERAPY Jose Mendez NP [address] [place] [phone] External Phys Thrpy Referral ID Status Reason Start Date Expiration Date V isits Requested Visits Authorized SEE NOTE Authorized/B ooked 11/11/2018 02/08/2019 1 1 Reason for Visit * Reason Onset Date Comments Work note 11/11/2018 Encounter Details Date Type Department Care Team Description 11/11/2018 Telephone Adult Medicine [address] [address] Jose Mendez NP Work note Social History Tobacco Use Types Packs/Day Years Used Date Smoking Tobacco: Some Days Smokeless Tobacco: Current Comments:social smoker on weekends Alcohol Use Standard Drinks/Week Comments Not Asked 0 (1 standard drink = 0.6 oz pur e alcohol) Sex Assigned at Date Recorded Not on file documented as of this encounter Miscellaneous Notes * Telephone Encounter - Claudine Lloyd M.A. - 11/11/2018 1:26 PM EST Pt is aware and letter placed in [facility] * Telephone Encounter - Jose Mendez NP - 11/11/2018 12:05 PM EST Will provide a letter for pt to remain home for the remainder of the wk to rest and recover. Placeda referral to PT for fx capacity eval. * Telephone Encounter - Negro Bynum - 11/11/2018 11:18 AM EST Patient requesting work note * Telephone Encounter - Najma Sloan - 11/11/2018 11:08 AM EST Work note is for: Out of Work Note Has patient been seen for the reason they were absent from work? Yes For what medical reason was/is patient out of work?: Work injury If Yes, by whom?: 11/10/18 Date patient seen: Jose Mendez What dates does the patient need the note to cover: Beginning date: 10/30/18 End Date: Patient doesn't know If note for return to work, what is return date: If note is to return to work, are there restrictions? No. 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
--- OUTSIDE RECORDS SUMMARY | 2025-02-24 15:49 | XMS_ITS | Encounter Summary ---
Author Organization [facility] Address [address] [place] [address] Care Team Providers Care Cashier Ticket Selling Name Role Phone Greg Rodriguez MD Primary Care Provider [phone] Community, Pcp Primary Care Provider Unavailabl e Encounter Details Date Type Department Care Team Description 02/03/2019 [facility] Medical Records [address] [place] [address] Abstract, Provider Social History Tobacco Use Types [...] on filedocumented in this encounter Care Teams Cashier Ticket Selling Relationship Specialty Start Date End Date Greg Rodriguez MD [address] [place] [address] [phone] PCP - General Internal Medicine 02/29/16 03/19/19 [facility], Pcp [address] [place] [phone] PCP - General Internal Medicine 03/20/19 documented as of this encounter
--- OUTSIDE RECORDS SUMMARY | 2025-02-24 15:49 | XMS_ITS | Encounter Summary ---
Author Organization [facility] Address [address] [place] [address] Care Team Providers Care Flour Broker Name Role Phone Community, Pcp Primary Care Provider Unavailabl e Encounter Details Date Type Department Care Team Description 03/20/2019 Release of Information Medical Records [address] [place] [address] Abstract, Provider Social History Tobacco Use Types [...] on filedocumented in this encounter Care Teams Flour Broker Relationship Specialty Start Date End Date Community, Pcp PCP - General Internal Medicine 03/20/19 documented as of this encounter
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
--- OUTSIDE RECORDS SUMMARY | 2025-02-24 15:49 | XMS_ITS | Encounter Summary ---
Author Organization [facility] Address [address] [place] [address] Care Team Providers Care Live Truck Technician Name Role Phone Greg Rodriguez MD Primary Care Provider [phone] [facility], Pcp Primary Care Provider Unavailabl e Encounter Details Date Type Department Care Team Description 07/19/2016 Orders Only Adult Medicine [address] [address] Aida Juarez PA-C [address] [place] [address] [phone] Social History Tobacco Use Types Packs/Day Years Used Date Smoking Tobacco: Former Alcohol Use Standard Drinks/Week Comments Not Asked 0 (1 standard drink = 0.6 oz pur e alcohol) Sex Assigned at Date Recorded Not on file documented as of this encounter Plan of Treatment Not on file documented as of this encounter Visit Diagnoses Not on filedocumented in this encounter Care Teams Live Truck Technician Relationship Specialty Start Date End Date Greg Rodriguez MD [address] [place] [address] [phone] PCP - General Internal Medicine 02/29/16 03/19/19 [facility], Pcp [address] [place] [phone] PCP - General Internal Medicine 03/20/19 documented as of this encounter
[2025-02-24 16:26] VITALS: BP 106/68; PULSE 108; TEMP 36.3; O2SAT 97; BMI 28.4
--- NOTE | 2025-02-24 16:26 | MHC.PC.OV ---
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 Accompanied by: Self / Same As Patient Allergies shellfish derived [SHELLFISH DERIVED] Allergy (Unknown, Verified 02/24/25 16:39) ANAPHYLAXIS gabapentin Adverse Reaction (Unknown, Verified 02/24/25 16:39) dizziness ibuprofen [IBUPROFEN] Adverse Reaction (Unknown, Verified 02/24/25 16:39) UPSET STOMACH, headache naproxen [NAPROXEN] Adverse Reaction (Unknown, Verified 02/24/25 16:39) DIZZINESS, UPSET STOMACH, headache Medication List - Last Reconciled 02/24/25 by Max Osuna PA-C albuterol sulfate 90 mcg/actuation (Ventolin HFA) 2 puffs inhalation Q4-6H PRN 90 days alprazolam 0.25 mg PO DAILY PRN 7 days rnoegibdlj-yvxilxlkhsybq-fuyf 50-325-40 mg 1 tab PO Q6H PRN dextroamphetamine-amphetamine 30 mg ER (Adderall XR) 30 mg PO DAILY 28 days diclofenac sodium 1% 2 grams topical TID fluticasone propion-salmeterol 230-21 mcg/actuation (Advair HFA) 2 puffs inhalation BID 90 days lidocaine 5% (Lidoderm) 1 patch topical DAILY naproxen 500 mg PO BID Tobacco use date assessed: 11/23/24 Dental Screening Dental Screen Date: 11/23/24 HPI 3 months/PPD Plant HPI Details Patient is a 29-year-old male here today for a follow-up visit Patient has a past medical history significant for lumbar disc disease, ADHD, asthma, migraines. .. Anxiety: Jean Claude reports he has been having a lot more anxiety. A few months ago we had started p.r.n. use of alprazolam 0.25 mg to which he seems to be using on a nearly everyday basis. We did discuss habit-forming nature of benzodiazepines a does understand. He was seeing a psychiatrist in the past and tried many different antianxiety lytics and he found a alprazolam was the most effective. Will try to set him up with a mental health therapist to discuss his childhood trauma and triggers to his anxiety. We did discuss trying a daily medication and he is open to the idea of trying propranolol daily to help reduce seeing say anxious somatic symptoms. .. Lumbar disc disease: The chronic low back pain worsened after starting full-time work with [employer], where he experienced a severe spasm requiring a walk-in clinic visit. The pain impeded his ability to work, leading to increased anxiety and depression. Muscle relaxants such as Flexeril and naproxen were ineffective, and gabapentin was previously tried with no benefit. He is willing to see pain management for pain reduction modality. For now will use lidocaine patches and naproxen for his pain. .. ADHD he is trying to reestablish care with psychiatry. For now I as his PCP has been managing his stimulant ADHD medication. He does have a counselor now to which he speaks with a weekly basis in his on waiting list to see a psychiatrist. He reports he is doing well with the current dose of Adderall on his attention and focus. No reported side effects Has a signed drug contract for use stimulant ADHD medication. .. Asthma: Has been fairly well controlled though does report having some exacerbations in his asthma during changes of seasons and in ginny environments. Does use an albuterol inhaler on a p.r.n. basis. [facility] Medical History Cervicalgia Spondylosis of lumbosacral region Chronic pain syndrome Degeneration of lumbosacral intervertebral disc Anxiety Surgical History History of lung surgery Family History Father Cancer Mother Mental health disorder Social History Housing: Apartment Alcohol intake: never Patient Tobacco Use Status: Never used Tobacco e-Cigarette/Vaping Use: Never Used Second Hand Smoke Exposure: No service: No Current occupational status: disabled Cognitive needs: Yes (cane) Hearing needs: No Vision needs: No Questionnaire PHQ-9 Over the last 2 weeks, how often have you been bothered by any of the following problems? 1. Little interest or pleasure in doing things: more than half the days 2. Feeling down, depressed, or hopeless: several days 3. Trouble falling or staying asleep, or sleeping too much: not at all 4. Feeling tired or having little energy: several days 5. Poor appetite or overeating: not at all 6. Feeling bad about yourself - or that you are a failure or have let yourself or your family down: several days 7. Trouble concentrating on things, such as reading the newspaper or watching television: several days 8. Moving or speaking so slowly that other people could have noticed. Or the opposite - being so fidgety or restless that you have been moving around a lot more than usual: not at all 9. Thoughts that you would be better off or of hurting yourself in some way: not at all Total score: 6 Depression Screening Interpretation: Positive Depression Screening Follow-up: Existing condition and Community Mental Health Worker F/U Depression Screening Done: Yes 15439 - PHQ-9 Billing: Yes Source: Developed by Drs. Jacques Cesar, Aubree Carrasquillo, Cricket Napoles and colleagues, with an educational yamilex from [employer]. Thrive Questionnaire Date Thrive assessed: 02/24/25 I am a: Patient What is your living situation today?: I have a steady place to live Within the past 12 months, did the food you bought not last and you didn't have the money to get more?: Sometimes True Within the past 12 months, did you worry whether your food would run out before you got money to buy more?: Sometimes True Do you have trouble paying for medicines?: No Do you have trouble getting transportation to medical appointments?: No Do you have trouble paying your heating and electricity bill?: Yes Do you have trouble taking care of your child, family member or friend?: I choose not to answer this question Do you have trouble with day-to-day activities such as bathing, preparing meals, shopping, managing finances, etc.?: Yes Are you currently unemployed and looking for a job?: Yes Are you interested in more education?: I choose not to answer this question Please select the resources that you would like help with: Daily support Currently or been in a relationship where the following occur: No concerns reported THRIVE Score: 3 AUDIT C Alcohol Use Questionnaire (AUDIT-C) 1. How often do you have a drink containing alcohol?: Never 3. How often do you have six or more drinks on one occasion?: Never Total Score: 0 ANN-7 AMB Questionnaire ANN-7 Date ANN - 7 assessed: 02/24/25 Feeling nervous, anxious, or on edge: 1 = Several days Not being able to stop or control worryin = Several days Worrying too much about different things: 1 = Several days Trouble relaxin = Several days Being so restless that it is hard to sit still: 0 = Not at all Becoming easily annoyed or irritable: 1 = Several days Feeling afraid as if something awful might happen: 0 = Not at all Total ANN-7 score (0-4 normal; 5-9 mild; 10-14 moderate; 15-21 severe): 5 Source: Developed by Drs. Jacques Cesar, Aubree Carrasquillo, Cricket Napoles and colleagues, with an educational yamilex from [employer]. ANN-7 Assessment Billing ANN-7 Assessment Tool: ANN-7 Assessment 11641 Review of Systems Const Denies headache(s) Eyes Denies loss of vision ENT Denies vertigo, Denies dizziness, Denies headache(s) and Denies sore throat Card Denies chest pain, Denies leg edema and Denies lightheadedness Resp Denies cough, Denies hemoptysis and Denies wheezing GI Denies abdominal pain, Denies melena, Denies constipation, Denies diarrhea and Denies vomiting Denies dysuria, Denies urinary frequency and Denies urinary urgency Musc Denies arthralgias, Denies joint swelling, Denies numbness and Denies tingling Neuro Denies Abnormal speech present, Denies behavioral changes, Denies vertigo, Denies dizziness, Denies headache(s), Denies loss of vision, Denies memory loss, Denies numbness and Denies tingling Psych Reports anxiety, Denies behavioral changes, Denies depression, Denies memory loss and Reports panic attacks Chris/Lymph Denies easy bleeding and Denies easy bruising Aller/Immun Denies wheezing Physical exam (Primary Care) Vital Signs: Last Vital Signs Temp 97.3 F 02/24/25 16:26 Pulse 108 H 02/24/25 16:26 BP 106/68 02/24/25 16:26 Pulse Ox 97 02/24/25 16:26 Oxygen Delivery Method Room Air 02/24/25 16:26 BMI result Body Mass Index 28.4 Tobacco/Smoking Status: Tobacco use Status Tobacco use date assessed 11/23/24 02/24/25 16:29 Patient Tobacco Use Status Never used Tobacco 02/24/25 16:29 e-Cigarette/Vaping Use Never Used 02/24/25 16:29 PHQ-9: PHQ-9 Score PHQ-9: Total score 6 02/24/25 16:43 Depression Screening Interpretation: Positive Depression Screening Follow-up: Existing condition and Community Mental Health Worker F/U Thrive Assessment: Date of Thrive Assessment Date Thrive assessed 02/24/25 02/24/25 16:29 Currently or been in a relationship where the following occur: No concerns reported Const General: healthy appearing, no acute distress, alert and awake Nutritional Appearance: well nourished Orientation/consciousness: oriented to person, oriented to place and oriented to time HENMT Ears: TM's normal bilaterally General nose exam: Normal nasal mucous membranes and turbinates present Eyes Conjunctivae: conjunctivae normal Sclerae: sclerae normal Pupils: Equal, round and reactive pupils present Neck Neck: Yes no lymphadenopathy and Yes no JVD Thyroid: Thyroid normal Carotids: no bruits Resp Effort & Inspection: normal respiratory effort and not tachypneic Auscultation: no crackles, no rales, no rhonchi and no wheezes Cardio Rate: regular rate Rhythm: regular rhythm Heart sounds: no murmurs and normal S1 and S2 GI Palpation (GI): Soft to palpation, nontender, no hepatomegaly and no splenomegaly Auscultation: normal bowel sounds Skin General skin exam: no rashes or lesions noted and dry skin Neuro General: oriented to person, oriented to place and oriented to time Cranial nerves: Yes Equal, round and reactive pupils present Speech: No Abnormal speech present Gait exam (Neuro): Normal gait present Motor exam (neuro): no tremor noted Extrem Right upper extremity: full ROM Left upper extremity: full ROM Right lower extremity: full ROM; no edema Left lower extremity: full ROM; no edema Psych Mental Status: mental status grossly normal Speech and movement: Normal speech and movement present Affect: normal affect Attitude: cooperative Thought process: Normal thought process present Office Meds tuberculin PPD 5 tub. unit/0.1 mL intradermal injection solution Performing Provider: Max Osuna PA-C Performing Location: [facility] [place] Administered by: Tiffanie Carrasco LPN on 02/24/25 16:25 Dose Route Admin Location Dispensed Lot Number Expiration Date NDC Supervisor Intermediates 0.1 mL intradermal 0.1 mL [id number] 09/05/27 [id number] [employer] Coding Level of Care Code Est Pt Level 4 (99623) Diagnoses ANN (generalized anxiety disorder) F41.1 Attention deficit hyperactivity disorder (ADHD), predominantly hyperactive type F90.1 Attention deficit-hyperactivity disorder type: predominantly hyperactive Mild persistent asthma with acute exacerbation J45.31 Asthma severity: mild Asthma persistence: persistent Asthma complication type: with acute exacerbation Additional Codes ANN-7 Assessment Billing - ANN-7 Assessment Tool: ANN-7 Assessment 46033 ([id number]) PHQ-9 - 83745 - PHQ-9 Billing: Yes ([id number]) Assessment & Plan Assessment & Plan (1) ANN (generalized anxiety disorder): Code(s): F41.1 - Generalized anxiety disorder Category: Medical Plan: Patient's ANN-7 score positive for anxiety which has been existing condition for him.. Patient reports his anxiety has been very bothersome as of late. He has still waiting to get set up with a psychiatrist. He was prescribed alprazolam many years ago for his anxiety which he does report being effective. We did discuss the habit-forming nature of benzodiazepines and he does understand. -->At this point we will increase the dosage of his alprazolam but does understand to use this on a as needed basis for acute panic. Will start propranolol on a daily basis to help reduce his somatic symptoms of his anxiety. Will try to set him up with mental health therapist and psychiatrist in future. (2) ADHD: Code(s): F90.9 - Attention-deficit hyperactivity disorder, unspecified type Category: Medical Qualifiers: Attention deficit-hyperactivity disorder type: predominantly hyperactive Qualified Code(s): F90.1 - Attention-deficit hyperactivity disorder, predominantly hyperactive type Plan: As per HPI patient now waiting list to see a psychiatrist. I as his primary care has been handling his ADHD stimulant medication. He is seems to be doing well though is not in school or working at this time. (3) Asthma: Code(s): J45.909 - Unspecified asthma, uncomplicated Category: Medical Qualifiers: Asthma severity: mild Asthma persistence: persistent Asthma complication type: with acute exacerbation Qualified Code(s): J45.31 - Mild persistent asthma with (acute) exacerbation Plan: Patient reports his asthma has been well controlled with only p.r.n. use of his albuterol inhaler. He denies any nighttime awakenings with asthma symptoms or recent asthma exacerbations. Orders: Orders AMB PPD Planted 02/24/25 Z11.1 - Encounter for screening for respiratory tuberculosis Referrals Counseling Referral F41.1 - Generalized anxiety disorder Medications: New alprazolam 1 mg PO DAILY PRN 7 tabs 0RF anxiety 14 days F41.1 - Generalized anxiety disorder propranolol ER 60 mg PO DAILY 30 caps 1RF 30 days F41.1 - Generalized anxiety disorder Discontinued alprazolam Discontinued Reason: Doctor's Order 0.25 mg PO DAILY 7 days PRN 7 tabs 0RF anxiety F41.1 - Generalized anxiety disorder
== END 2025-02-24 16:57 | disposition home or self-care (01) ==
LOC: HO.HMCH 15:47
PROVIDERS: PCP Physician Assistant; Visit Provider Physician Assistant
DX: F41.1 Generalized anxiety disorder (principal); F90.1 Attention-deficit hyperactivity disorder, predominantly hyperactive type; J45.31 Mild persistent asthma with (acute) exacerbation

== ENCOUNTER → 2025-02-24 15:46 | Outpatient (BNVA) | payer OTHER, SELFPAY | PROVIDERS: PCP Physician Assistant; Visit Provider Physician Assistant | DX: F90.1 Attention-deficit hyperactivity disorder, predominantly hyperactive type (principal); J45.909 Unspecified asthma, uncomplicated; G43.909 Migraine, unspecified, not intractable, without status migrainosus; F41.1 Generalized anxiety disorder; J45.31 Mild persistent asthma with (acute) exacerbation; Z11.1 Encounter for screening for respiratory tuberculosis | CPT/HCPCS: 86580; 96127; 99212 ==

== ENCOUNTER → 2025-02-26 16:39 | Outpatient (BNVA) | payer OTHER, SELFPAY | PROVIDERS: PCP Physician Assistant; Visit Provider Physician Assistant ==

== ENCOUNTER 2025-06-24 11:32 | Outpatient (AMB) | payer OTHER, SELFPAY ==
--- NOTE | 2025-06-24 11:36 | MHC.PC.OV ---
Vital Signs 06/24/25 11:37 Height 5 ft 8 in Weight 215 lb BMI 32.7 BP 100/62 Blood Pressure Location Lt brachial Position Sitting Pulse 83 Pulse Oximetry (%) 95 Oxygen Delivery Method Room Air Intake Visit Reasons: Med review Collet Gluer Required: No Accompanied by: Self / Same As Patient Allergies shellfish derived (SHELLFISH DERIVED) Allergy (Unknown, Verified 06/24/25 11:46) ANAPHYLAXIS gabapentin Adverse Reaction (Unknown, Verified 06/24/25 11:46) dizziness ibuprofen (IBUPROFEN) Adverse Reaction (Unknown, Verified 06/24/25 11:46) UPSET STOMACH, headache naproxen (NAPROXEN) Adverse Reaction (Unknown, Verified 06/24/25 11:46) DIZZINESS, UPSET STOMACH, headache Medication List - Last Reconciled 06/24/25 by Max Osuna PA-C albuterol sulfate 90 mcg/actuation (Ventolin HFA) 2 puffs inhalation Q4-6H PRN 90 days alprazolam 1 mg PO DAILY 15 days dextroamphetamine-amphetamine 30 mg ER (Adderall XR) 30 mg PO DAILY 28 days fluticasone propion-salmeterol 230-21 mcg/actuation (Advair HFA) 2 puffs inhalation BID 90 days Tobacco use date assessed: 11/23/24 Dental Screening Dental Screen Date: 06/24/25 Did you have a dental visit in the last 12 months?: No Did you have a dental problem in the last 6 months where you did not have access to dental care?: No Was dental information given to patient?: No HPI Med review HPI Details Patient is a 30-year-old male here today for a follow-up visit Patient has a past medical history significant for lumbar disc disease, ADHD, asthma, migraines. Concern--> patient report he feels his tonsils are swollen and often has tonsil stones over the last few months. Denies any dysphagia. He attributes some of these symptoms to possibly having mold in his apartment. .. Anxiety: Patient reports his anxiety has been a bit better since using alprazolam on an daily basis. Seeing a mental health therapist ( cristiana Rahman ), he is on a waiting list to see a psychiatrist. . .. ADHD he is trying to reestablish care with psychiatry. For now I as his PCP has been managing his stimulant ADHD medication. He does have a counselor now to which he speaks with a weekly basis in his on waiting list to see a psychiatrist. He reports he is doing well with the current dose of Adderall on his attention and focus. No reported side effects Has a signed drug contract for use stimulant ADHD medication. .. Asthma: Has been fairly well controlled though does report having some exacerbations in his asthma during changes of seasons and in ginny environments. Does use an albuterol inhaler on a p.r.n. basis. [facility] Medical History Cervicalgia Spondylosis of lumbosacral region Chronic pain syndrome Degeneration of lumbosacral intervertebral disc Anxiety Surgical History History of lung surgery Family History Father Cancer Mother Mental health disorder Social History Housing: Apartment Alcohol intake: never Patient Tobacco Use Status: Never used Tobacco e-Cigarette/Vaping Use: Never Used Second Hand Smoke Exposure: No service: No Current occupational status: disabled Cognitive needs: Yes (cane) Hearing needs: No Vision needs: No Questionnaire PHQ-9 Over the last 2 weeks, how often have you been bothered by any of the following problems? 1. Little interest or pleasure in doing things: several days 2. Feeling down, depressed, or hopeless: several days 3. Trouble falling or staying asleep, or sleeping too much: several days 4. Feeling tired or having little energy: several days 5. Poor appetite or overeating: several days 6. Feeling bad about yourself - or that you are a failure or have let yourself or your family down: several days 7. Trouble concentrating on things, such as reading the newspaper or watching television: several days 8. Moving or speaking so slowly that other people could have noticed. Or the opposite - being so fidgety or restless that you have been moving around a lot more than usual: several days 9. Thoughts that you would be better off or of hurting yourself in some way: not at all Total score: 8 Depression Screening Interpretation: Positive Depression Screening Follow-up: Existing condition and In treatment Depression Screening Done: Yes 78016 - PHQ-9 Billing: Yes Source: Developed by Drs. Jacques Cesar, Aubree Carrasquillo, Cricket Napoles and colleagues, with an educational yamilex from [employer]. Thrive Questionnaire Date Thrive assessed: 02/24/25 I am a: Patient What is your living situation today?: I have a steady place to live Within the past 12 months, did the food you bought not last and you didn't have the money to get more?: Sometimes True Within the past 12 months, did you worry whether your food would run out before you got money to buy more?: Sometimes True Do you have trouble paying for medicines?: No Do you have trouble getting transportation to medical appointments?: No Do you have trouble paying your heating and electricity bill?: Yes Do you have trouble taking care of your child, family member or friend?: I choose not to answer this question Do you have trouble with day-to-day activities such as bathing, preparing meals, shopping, managing finances, etc.?: Yes Are you currently unemployed and looking for a job?: Yes Are you interested in more education?: I choose not to answer this question Please select the resources that you would like help with: Daily support Currently or been in a relationship where the following occur: No concerns reported THRIVE Score: 3 AUDIT C Alcohol Use Questionnaire (AUDIT-C) 1. How often do you have a drink containing alcohol?: Never 3. How often do you have six or more drinks on one occasion?: Never Total Score: 0 ANN-7 AMB Questionnaire ANN-7 Date ANN - 7 assessed: 02/24/25 Feeling nervous, anxious, or on edge: 1 = Several days Not being able to stop or control worryin = Several days Worrying too much about different things: 1 = Several days Trouble relaxin = Nearly every day Being so restless that it is hard to sit still: 1 = Several days Becoming easily annoyed or irritable: 1 = Several days Feeling afraid as if something awful might happen: 3 = Nearly every day Total ANN-7 score (0-4 normal; 5-9 mild; 10-14 moderate; 15-21 severe): 11 Source: Developed by Drs. Jacques Cesar, Aubree Carrasquillo, Cricket Napoles and colleagues, with an educational yamilex from [employer]. ANN-7 Assessment Billing ANN-7 Assessment Tool: ANN-7 Assessment 31758 ACT Questionnaire In the past 4 weeks, how much of the time did your asthma keep you from getting as much done at work, school or at home?: A little of the time During the past 4 weeks, how often have you had shortness of breath?: Not at all During the past 4 weeks, how often did your asthma symptoms wake you up at night or earlier than usual in the morning?: Once or twice per week During the past 4 weeks, how often have you had to use your rescue inhaler or nebulizer medication?: 2-3 times a week How would you rate your asthma control during the past 4 weeks?: Somewhat controlled Score: 19 Review of Systems Const Denies headache(s) Eyes Denies loss of vision ENT Denies vertigo, Denies dizziness, Denies headache(s) and Denies sore throat Card Denies chest pain, Denies leg edema and Denies lightheadedness Resp Denies cough, Denies hemoptysis and Denies wheezing GI Denies abdominal pain, Denies melena, Denies constipation, Denies diarrhea and Denies vomiting Denies dysuria, Denies urinary frequency and Denies urinary urgency Musc Denies arthralgias, Denies joint swelling, Denies numbness and Denies tingling Neuro Denies Abnormal speech present, Denies behavioral changes, Denies vertigo, Denies dizziness, Denies headache(s), Denies loss of vision, Denies memory loss, Denies numbness and Denies tingling Psych Denies anxiety, Denies behavioral changes, Denies depression, Denies memory loss and Denies panic attacks Chris/Lymph Denies easy bleeding and Denies easy bruising Aller/Immun Denies wheezing Physical exam (Primary Care) Vital Signs: Last Vital Signs Pulse 83 06/24/25 11:37 BP 100/62 06/24/25 11:37 Pulse Ox 95 06/24/25 11:37 Oxygen Delivery Method Room Air 06/24/25 11:37 BMI result Body Mass Index 32.7 Tobacco/Smoking Status: Tobacco use Status Tobacco use date assessed 11/23/24 06/24/25 11:45 Patient Tobacco Use Status Never used Tobacco 06/24/25 11:45 e-Cigarette/Vaping Use Never Used 06/24/25 11:45 PHQ-9: PHQ-9 Score PHQ-9: Total score 8 06/24/25 16:00 Depression Screening Interpretation: Positive Depression Screening Follow-up: Existing condition and In treatment Thrive Assessment: Date of Thrive Assessment Date Thrive assessed 02/24/25 06/24/25 11:45 Currently or been in a relationship where the following occur: No concerns reported Const General: healthy appearing, no acute distress, alert and awake Nutritional Appearance: well nourished Orientation/consciousness: oriented to person, oriented to place and oriented to time HENMT Other: BILATERAL TONSILS ERYTHEMATOUS Ears: TM's normal bilaterally General nose exam: Normal nasal mucous membranes and turbinates present Throat: Yes abnormal tonsil Eyes Conjunctivae: conjunctivae normal Sclerae: sclerae normal Pupils: Equal, round and reactive pupils present Neck Neck: Yes no lymphadenopathy and Yes no JVD Thyroid: Thyroid normal Carotids: no bruits Resp Effort & Inspection: normal respiratory effort and not tachypneic Auscultation: no crackles, no rales, no rhonchi and no wheezes Cardio Rate: regular rate Rhythm: regular rhythm Heart sounds: no murmurs and normal S1 and S2 GI Palpation (GI): Soft to palpation, nontender, no hepatomegaly and no splenomegaly Auscultation: normal bowel sounds Skin General skin exam: no rashes or lesions noted and dry skin Neuro General: oriented to person, oriented to place and oriented to time Cranial nerves: Yes Equal, round and reactive pupils present Speech: No Abnormal speech present Gait exam (Neuro): Normal gait present Motor exam (neuro): no tremor noted Extrem Right upper extremity: full ROM Left upper extremity: full ROM Right lower extremity: full ROM; no edema Left lower extremity: full ROM; no edema Psych Mental Status: mental status grossly normal Speech and movement: Normal speech and movement present Affect: normal affect Attitude: cooperative Thought process: Normal thought process present Coding Level of Care Code Est Pt Level 4 (33760) Diagnoses ANN (generalized anxiety disorder) F41.1 Attention deficit hyperactivity disorder (ADHD), predominantly hyperactive type F90.1 Attention deficit-hyperactivity disorder type: predominantly hyperactive Mild persistent asthma with acute exacerbation J45.31 Asthma complication type: with acute exacerbation Asthma persistence: persistent Asthma severity: mild Bilateral swelling of tonsils J35.1 Additional Codes ANN-7 Assessment Billing - ANN-7 Assessment Tool: ANN-7 Assessment 34294 ([id number]) PHQ-9 - 86470 - PHQ-9 Billing: Yes ([id number]) Assessment & Plan Assessment & Plan (1) ANN (generalized anxiety disorder): Code(s): F41.1 - Generalized anxiety disorder Category: Medical Plan: Patient's ANN-7 score positive for anxiety which has been a long standing issue.. Jean Claude has been using alprazolam 1 mg daily which has significantly reduced his anxiety. He is now speaking with a mental health therapist and on a waiting list to see a psychiatrist. (2) ADHD: Code(s): F90.9 - Attention-deficit hyperactivity disorder, unspecified type Category: Medical Qualifiers: Attention deficit-hyperactivity disorder type: predominantly hyperactive Qualified Code(s): F90.1 - Attention-deficit hyperactivity disorder, predominantly hyperactive type Plan: As per HPI patient now waiting list to see a psychiatrist. I as his primary care has been handling his ADHD stimulant medication. He is seems to be doing well though is not in school or working at this time. (3) Asthma: Code(s): J45.909 - Unspecified asthma, uncomplicated Category: Medical Qualifiers: Asthma complication type: with acute exacerbation Asthma persistence: persistent Asthma severity: mild Qualified Code(s): J45.31 - Mild persistent asthma with (acute) exacerbation Plan: Patient reports his asthma has been well controlled with only p.r.n. use of his albuterol inhaler. He denies any nighttime awakenings with asthma symptoms or recent asthma exacerbations. (4) Bilateral swelling of tonsils: Code(s): J35.1 - Hypertrophy of tonsils Category: Medical Plan: Patient reports having swollen tonsils over last few weeks, often gets tonsil stones and bad breath. He is interested in maybe having his tonsils removed. He does attributes these symptoms also do possibly having mold in his apartment. Will supply patient with nasal sprain an allergy medication. On physical exam does seem to have red swollen tonsils thus will send in antibiotic for possible tonsillitis infection. Orders: Orders IgE Antibody (Anti-IgE IgG) 06/24/25 J35.1 - Hypertrophy of tonsils Aspergillus Ag EIA 06/24/25 J35.1 - Hypertrophy of tonsils Resp Allergy Profile Region I 06/24/25 J35.1 - Hypertrophy of tonsils, R05.9 - Cough, unspecified Medications: New montelukast (Singulair) 10 mg PO DAILY 90 tabs 1RF 90 days J35.1 - Hypertrophy of tonsils fluticasone propionate 50 mcg/actuation (Flonase Allergy Relief) administer into each nostril 1 spray intranasal DAILY 16 grams 0RF 30 days R09.82 - Postnasal drip prednisone 20 mg PO DAILY 7 tabs 0RF 7 days J35.1 - Hypertrophy of tonsils amoxicillin 875 mg PO BID 14 tabs 0RF 7 days J35.1 - Hypertrophy of tonsils Refilled dextroamphetamine-amphetamine 30 mg ER (Adderall XR) Partial Fill upon patient request. 30 mg PO DAILY 28 caps 0RF 28 days F90.1 - Attention-deficit hyperactivity disorder, predominantly hyperactive type
[2025-06-24 11:37] VITALS: BP 100/62; PULSE 83; O2SAT 95; BMI 32.7
--- OUTSIDE RECORDS SUMMARY | 2025-06-24 13:54 | XMS_ITS | Clinical Summary ---
Author Organization [facility] ity Address [address] [place] [address] Care Team Providers Care Religion Department Chair Name Role Phone Unavailable Primary Care Provider [...] - 19+ 3-dose series) 09/08/2016 04/11/2016, 03/09/2016 Depression Screening 10/07/2024 COVID-19 Vaccine (1 - 2023-2 5 season) 2025 Influenza Vaccine (#1) 2025 DTaP,Tdap,and Td Vaccines (2 - Td [...] 5 Years) and At-Risk Patients (6 to 49 Years) Aged Out No longer eligible b ased on patient's age to complete this topic RSV Immunization Patients Under 20 months Aged Out No longer eligible b ased on patient's age to complete this topic Varicella Vaccines Aged Out No longer eligible based on patient's age to complete this topic
== END 2025-06-24 12:02 | disposition home or self-care (01) ==
LOC: HO.HMCH 11:33
PROVIDERS: PCP Physician Assistant; Visit Provider Physician Assistant
DX: F41.1 Generalized anxiety disorder (principal); F90.1 Attention-deficit hyperactivity disorder, predominantly hyperactive type; J45.31 Mild persistent asthma with (acute) exacerbation; J35.1 Hypertrophy of tonsils

== ENCOUNTER → 2025-06-24 11:32 | Outpatient (BNVA) | payer OTHER, SELFPAY | PROVIDERS: PCP Physician Assistant; Visit Provider Physician Assistant | DX: F41.1 Generalized anxiety disorder (principal); F90.1 Attention-deficit hyperactivity disorder, predominantly hyperactive type; F90.9 Attention-deficit hyperactivity disorder, unspecified type; J45.31 Mild persistent asthma with (acute) exacerbation; J35.1 Hypertrophy of tonsils; R05.9 Cough, unspecified; R09.82 Postnasal drip | CPT/HCPCS: 96127; 96160; 99212 ==

== ENCOUNTER 2025-07-12 10:12 | Outpatient (REF) | payer OTHER, SELFPAY ==
--- OUTSIDE RECORDS SUMMARY | 2025-07-12 11:52 | XMS_ITS | Clinical Summary ---
Author Organization [facility] ity Address [address] [place] [address] Care Team Providers Care Demonstrator Sales Name Role Phone Unavailable Primary Care Provider [...] - 19+ 3-dose series) 09/08/2016 04/11/2016, 03/09/2016 HPV Vaccines (1 - 3-dose SCD M series) 2021 Depression Screening 10/07/2024 COVID-19 Vaccine ( - 2023-2 5 season) 2025 Influenza Vaccine (#1) 2025 DTaP,Tdap,and Td Vaccines (2 - Td or Tdap) 02/09/2026 02/10/2016 RSV Immunization Adult Patients (1 - 1-dose 75+ series) 2069 HIB Vaccines Aged Out No longer eligi [...]
[2025-07-18 17:19] LABS: Index Value 0.07 (<0.50)
[2025-07-22 11:09] LABS: IgE Antibody (Anti-IgE IgG) 50
[2025-07-22 11:10] LABS: Class Mouse Urine Protein 0; I006-IgE Cockroach, German 0.38
[2025-07-22 11:27] LABS: Class Cockroach 1; Class Dermatophagoides farinae 2; D002 - IgE D farinae 1.54; E001 - IgE Cat Dander <0.10
[2025-07-22 11:28] LABS: Class Alternaria alternata 0/1; Class Aspergillus fumigatus 1; Class Cat Dander 0; Class Cladosporium herbarum 0; Class Dog Dander 2; Class Timothy Grass 2; E005 - IgE Dog Dander 0.98; G006 - IgE Timothy Grass 3.17; M002 - IgE Cladosporium herbar <0.10; M003 - IgE Aspergillus fumigat 0.61; M006 - IgE Alternaria alternat 0.25
[2025-07-22 11:29] LABS: Class Cottonwood 2; Class Mountain Cedar 2; Class Oak 4; Class Sycamore 3; Class Walnut Tree 3; Class White Ash 3; T006 - IgE Cedar, Mountain 1.07; T007 - IgE Oak, White 24.70; T010 - IgE Walnut 3.73; T011 - IgE Maple Leaf Sycamore 4.03; T014 - IgE Cottonwood 1.59; T015 - IgE Ash, White 6.55
[2025-07-22 11:30] LABS: Class Bermuda Grass 2; Class Common Ragweed 2; Class Derm. pterony 2; Class Mugwort 2; Class White Mulberry 0; T070 - IgE White Mulberry <0.10; W001 - IgE Ragweed, Short 1.70; W006 - IgE Mugwort 0.79
[2025-07-22 11:31] LABS: Class Birch 4; Class Elm 3; Class Maple Box Elder 2; Class Penicillium crysogenum 0; Class Rough Pigweed 1; Class Sheep Sorrel 2; T001 IgE Maple/Box Elder 1.13; T008 IgE Elm, American 5.67; W014 IgE Pigweed, Common 0.38; W018 IgE Sheep Sorrel 0.94
== END 2025-07-12 10:13 | disposition home or self-care (01) ==
LOC: HO.LAB 10:12
PROVIDERS: PCP Physician Assistant; Visit Provider Physician Assistant
DX: Z01.84 Encounter for antibody response examination (principal); R05.9 Cough, unspecified; J35.1 Hypertrophy of tonsils
CPT/HCPCS: 36415; 82785; 83520; 86003; 87305